=== PATIENT | female | born 1950 | race Caucasian/White ===

== ENCOUNTER 2016-08-31 10:18 | Inpatient (IN) | payer OTHER, MEDICARE ==
[~2016-08-31] VITALS: Ht 160 cm; Wt 57.5 kg
[2016-08-31] VITALS (8 sets, daily range): BP systolic 125–164; BP diastolic 77–94; PULSE 91–120; RESP 15–22; O2SAT 90–95
[~2016-08-31 10:18] MED LIST: ALBU8.5H4 IH; ASCO500C6 PO; ASPI-628 PO; CALC1TAB99 PO; CHOL100045 PO; CYAN1TAB42 PO; LISI10TA2 PO; LORA10TA7 PO; OMEG500C3 PO; SYN75 PO
--- NOTE | 2016-08-31 10:49 | ED.REPORT ---
HPI-Dyspnea / Wheezing Date of Service Aug 31, 2016 ED Provider: Will Palumbo MD History of Present Illness: Sent from Urgent Care for o2 say 80%, HR 135 66 year old female with a history of HTN on levothyroxine and lisinopril and seasonal allergies (uses an inhaler PRN) who presents to the ED via EMS from urgent care due shortness of breath and productive cough that has been present for the last 2 weeks, that has worsened in the last 4 days. She went to urgent care today due to severity of symptoms, and was found to be hypoxic and tachycardic. Two months ago the patient was able to walk any distance without shortness of breath. She now is short of breath at rest and has difficulty walking to the bathroom. Additionally, the patient reports insomnia, lethargy, balance difficulty, fever, diaphoresis, chills and palpitations with walking. Pt had 2 days of nausea, vomiting and diarrhea 4 days ago, which has since resolved. Pt has received her influenza immunization. Pt denies hemoptysis, has no known sick contacts, and has no hx of pneumonia or COPD. Nursing Notes Stated Complaint: NAUSEA/SOB/HIGH HR Chief Complaint: Respiratory Distress Nursing Notes Reviewed: Yes (MolecularMD, Right Media not reconciled) Allergies: Coded Allergies: Sulfa (Sulfonamide Antibiotics) (Verified Allergy, Intermediate, Rash, DEHYDRATION, 08/31/16) atenolol (Verified Allergy, Mild, 08/31/16) FATIGUE tetracycline (Verified Allergy, Unknown, INCREASED INFECTION, 08/31/16) Scheduled Ascorbic Acid (Vitamin C) 500 Mg Capsule.er 500 MG PO DAILY Aspirin (Aspirin) 81 Mg Tablet 81 MG PO DAILY Calcium Carbonate/Vitamin D3 (Calcium 600 + Vit D Tablet) 1 Each Tablet 1 EACH PO DAILY Cholecalciferol (Vitamin D3) (Vitamin D) 1,000 Unit Capsule 1,000 UNIT PO DAILY Levothyroxine (Synthroid) 75 Mcg Tablet 75 MCG PO DAILY Lisinopril (Lisinopril) 5 Mg Tablet 5 MG PO DAILY Multivits-Min/FA/Lycopene/Lut (Centrum Silver Tablet) 1 Each Tablet 1 EACH PO DAILY [place]-3 Fatty Acids (Fish Oil) 500 Mg Capsule 500 MG PO DAILY Vit B Comp/C/FA/Iron/Vit E (Vitamin B Complex Tablet) 1 Each Tablet 1 EACH PO DAILY Scheduled PRN Loratadine (Claritin) 10 Mg Capsule 10 MG PO DAILY PRN PRN allergies General Time Seen by MD: 10:47 Chief Complaint Shortness of breath Hx Obtained From: Patient, Spouse, EMS Arrived By: Ambulance Sudden in Onset?: No Onset Occurred: 4 days ago Symptom Duration: More than a week... (2 weeks) Quality: Aching (diffuse) Severity: Current: Moderate Associated with: Reports: Fever, Nausea Pertinent Negative: Relieved by nothing Recent Healthcare: Recent doctor visit Past Medical History Past Medical History Hypertension GERD Depression Allergies- uses an inhaler PRN Pt denies any history of pneumonia and COPD. Past Surgical History Partial thyroidectomy Reports: Hysterectomy Smoking History Never Smoker Social History Alcohol Use: 1-3 per day Ambulatory Status Independent Review of Systems Basic Review of Systems Eyes: Vision NL, No discharge Neurologic: NL mental status Psychiatric: Normal thought content Constitutional: Reports: Chills, Fever, Lethargy, Weakness - generalized Respiratory: Reports: Dyspnea on exertion, Prod cough, clear, Shortness of breath, Denies: Hemoptysis Cardiovascular: Reports: Dyspnea on exertion, Palpitations Skin: Reports Diaphoresis, Denies Rash Complete sys rev & neg: except as marked. GI: Reports: Diarrhea, Nausea, Vomiting Physical Exam Initial Vital Signs Vital Signs (First) Date Time Temp Pulse Resp B/P Pulse Ox O2 Delivery O2 Flow Rate FiO2 08/31/16 10:27 37.2 120 20 125/77 90 08/31/16 11:23 Nasal Cannula 4 Initial VS: Reviewed, Vital signs abnormal (hypoxic, tachycardic) Head / Eyes: Atraumatic, Normocephalic, PERRL ENT: Mucous membranes moist, Conjunctiva normal, No scleral icterus Abdomen / GI: Soft, Non-tender, No guarding, No rebound, No distention Extremities: Vascular intact, Neuro intact, No swelling (No edema), No tenderness Skin: Warm, Dry, No cyanosis Neurologic: Alert, Oriented, Nonfocal Psychiatric: Mood/affect normal, Behavior normal, Normal thought content General/Constitutional: Awake, Alert appears fatiged and dehydrated Neck: Atraumatic, Supple, Full range of motion Respiratory / Chest: No rales, No rhonchi, No wheezing rhonchi in all pathak Cough Does not appear severely dyspneic Cardiovascular: Regular rhythm, No murmurs, Peripheral circulation NL Heart Rate / Rhythm: Positive: Tachycardia Interpretation & Diagnostics Lab Results Interpretation Result Diagram: 08/31/16 1040 08/31/16 1040 Test 08/31/16 10:40 08/31/16 11:35 White Blood Count 16.6th/mm3 (3.8-10.1) Red Blood Count 4.51mil/mm3 (3.90-5.20) Hemoglobin 13.5g/dL (12.0-15.6) Hematocrit 39.4% (35.0-46.0) Mean Corpuscular Volume 87.4fL (81-100) Mean Corpuscular Hemoglobin 29.9pg (27.0-35.0) Mean Corpuscular Hemoglobin Concent 34.3% (32.0-37.0) Red Cell Distribution Width 12.5% (12.3-15.4) Platelet Count 456bil/L (150-400) Neutrophils (%) (Auto) 76% (40-74) Lymphocytes (%) (Auto) 6% (14-46) Monocytes (%) (Auto) 13% (4-12) Eosinophils (%) (Auto) 0% (0-5) Basophils (%) (Auto) 0% (0-3) Band Neutrophils % 5% (1-5) Sodium Level 129mEq/L (134-144) Potassium Level 3.4mEq/L (3.5-5.2) Chloride Level 89mEq/L (97-108) Carbon Dioxide Level 24mmol/L (18-29) Blood Urea Nitrogen 19mg/dL (8-27) Creatinine 0.79mg/dL (0.57-1.00) Estimat Glomerular Filtration Rate 104mL/min (>59) Glucose Level 146mg/dL (60-99) Lactic Acid Level 1.8mmol/L (0.4-2.0) Calcium Level 9.1mg/dL (8.5-10.1) Magnesium Level 2.2mg/dL (1.6-2.6) Total Bilirubin 1.0mg/dL (0.0-1.2) Aspartate Amino Transf (AST/SGOT) 27U/L (0-50) Alanine Aminotransferase (ALT/SGPT) 41U/L (0-32) Alkaline Phosphatase 121U/L (25-165) Troponin T < 0.010ug/L (0.0-0.011) Total Protein 8.0g/dL (6.4-8.4) Albumin 3.4g/dL (3.4-5.0) Procalcitonin 6.52ng/mL (See Comment) Hold Oralndo Top Tube Received (Received) Urine Color Yellow (YELLOW) Urine Appearance Slightly cloudy Urine pH 6.0 (5.0-8.0) Urine Specific [place] 1.020 (1.003-1.035) Urine Protein 100mg/dL (NEG,TRACE) Urine Glucose (UA) Negativemg/dL (NEGATIVE) Urine Ketones 15mg/dL (NEGATIVE) Urine Occult Blood Moderate (NEGATIVE) Urine Nitrite Positive (NEGATIVE) Urine Bilirubin Negative (NEGATIVE) Urine Urobilinogen 4.0mg/dL (NORMAL) Urine Leukocyte Esterase Small (NEGATIVE) Urine RBC 0-2/hpf (0-2) Urine WBC 11-50/hpf (0-5) Urine Epithelial Cells Occasional/hpf (NONE-MOD) Urine Crystals None seen (NONE SEEN) Urine Bacteria Many/hpf (NONE-FEW) Urine Hyaline Casts None/lpf (NONE) Urine Granular Casts None seen (NONE SEEN) Urine Waxy Casts None seen (NONE SEEN) Urine Red Blood Cell Casts None seen (NONE SEEN) Urine White Blood Cell Casts None seen (NONE SEEN) Urine Mucus None seen (None Seen) Urine Trichomonas None seen (NONE SEEN) Urine Yeast None (NONE SEEN) Urinalysis Comment None Urine Culture Reflexed Indicated Lab Results Interpretation: CBC positive severe leukocytosis CMP mild hyponatremia, mild hypokalemia Lactic acid normal next line blood culture 2 pending UA + for markers of infection (clinically respiratory source is suspected) Influenza screen negative General Lab Results Interp 1: Labs reviewed ECG Interpretation ECG Interpretation: Sinus tachycardia with a rate of 116. Time: 10:35 Interpreted by: ED physician Normal ECG Interpretation: No acute ischemic changes X-Ray Chest Interpretation Chest Xray Interpretation: IMPRESSION: Bibasilar lung opacities suspicious for aspiration versus pneumonia. Dictated by: Lucia Betancourt MD, PhD on 08/31/2016 at 11:23 View: Portable Interpretation / Wet Read by: Interpret - Radiologist Re-Eval/Medical Decision Med Decision/Clinical Course This is a 66-year-old healthy female presents with fever cough shortness of breath this then worsened over the past 4-5 days. She went to urgent care today due to severity of symptoms, and was found to be hypoxic and tachycardic. She is sent over the ED, and is not currently febrile - he is tachycardic and hypoxic. She has rhonchi throughout all pathak and is very fatigued and moderately ill. She appears dehydrated and has had poor intake the past few days. She has no previous cardiopulmonary history except for mild environmental allergies for which he uses his seasonal inhaler rarely. Her workup is notable for bibasilar pneumonia. She meets sepsis criteria clinically, as well as with the elevated white count, heart rate, hypoxia and pneumonia. Influenza swab was negative. She was started on IV fluids, antibiotics with ceftriaxone and azithromycin for community acquired pneumonia. Admission is planned. Urinalysis also abnormal, the patient's being covered for genitourinary source with the ceftriaxone. Case has been discussed with the hospitalist on patient's being admitted for continued management. Source of Hx: Old records Re-Evaluation/Progress : Time of Eval: 11:36 Re-Evaluation/Progress Note: Pt and family updated of abnormal x-ray findings. Recommended admission. Pt understands and agrees with plan. All questions addressed. Consultation : Referral / Consult Name: Ron West MD Consulted With: Hospitalist Call Returned at: 12:43 Metalworking Specialist: Will see patient, Agrees with eval, Agrees with plan, Accepts admit Differential Diagnosis: Positive: Pneumonia, Negative: Acute coronary syndrome, Airway obstruction, COPD exacerbation, Carbon monoxide poisoning, Cardiogenic shock, Hypertensive emergency, Hyperventilation, Inhalation injury, Pulmonary embolism, Respiratory failure Counseled Regarding: Diagnosis, Lab results, Need for admission Discharge & Departure Impression: Primary Impression: Pneumonia Pneumonia type: due to unspecified organism Laterality: bilateral Lung location: lower lobe of lung Qualified Code: J18.9 - Pneumonia, unspecified organism Additional Impressions: Hypoxia Sepsis Sepsis type: sepsis due to unspecified organism Qualified Code: A41.9 - Sepsis, unspecified organism UTI (urinary tract infection) Urinary tract infection type: acute cystitis Hematuria presence: without hematuria Qualified Code: N30.00 - Acute cystitis without hematuria Disposition: ADMITTED TO HOSPITAL Discharge Condition All VS Reviewed: Yes Referrals: Charlotte Llamas MD (PCP) Dixie Vergara DO Crit Care Except Billable Proc Time Spent: 30-74 minutes Services Performed: Patient management by me, Time spent at bedside, Reviewing test results, Reviewing imaging, Discussing patient care, Documentation in record, Time with fam/surrogate Scribe Attestation Portions of this note were transcribed by Zulma Spann. I, (Dr. Palumbo) personally performed the history, physical exam and medical decision-making; I reviewed and confirmed the accuracy of the information in the transcribed note. Signed by: Zulma Spann. 08/31/2016, 1242 copies to: Dixie Vergara Matthew F MD Aug 31, 2016 10:49 Zulma Spann Aug 31, 2016 11:04
[2016-08-31 10:55] LABS: Mean Corpuscular Hemoglobin 29.9 pg (27.0-35.0); Mean Corpuscular Volume 87.4 fL (81-100); Platelet Count 456 bil/L (150-400)
[2016-08-31] MEDS ORDERED: 0.9% Sodium Chloride 1,000 ML IV ONE (11:05)
[2016-08-31 11:17] LABS: BASOPHILS % (AUTO) 0 % (0-3); EOSINOPHILS % (AUTO) 0 % (0-5); MONOCYTES % (AUTO) 13 % (4-12); NEUTROPHILS % (AUTO) 76 % (40-74)
[2016-08-31] MEDS ORDERED: cefTRIAXone Inj 2,000 MG in IV Premix 1 EACH IV ONE (11:20)
[2016-08-31] MEDS ORDERED: Azithromycin Inj 500 MG in Dextrose 5% w/Vial Mate 250 ML IV ONE (11:20)
[2016-08-31 11:24] LABS: Magnesium 2.2 mg/dL (1.6-2.6)
--- NOTE | 2016-08-31 11:25 | DRSVH ---
PROCEDURE: X-RAY CHEST ONE VIEW, PORTABLE ([id number]) INDICATIONS: dyspnea TECHNIQUE: One view of the chest was acquired. COMPARISON: None. FINDINGS: Surgical changes and devices: None. Lungs and pleura: No pleural effusions or pneumothorax. Patchy opacities in the lung bases bilateral ly suspicious for pneumonia versus aspiration. Mediastinum: Mediastinal contours appear normal. Heart size is normal. Bones and chest wall: No suspicious bony lesions. Overlying soft tissues appear unremarkable. IMPRESSION: Bibasilar lung opacities suspicious for aspiration versus pneumonia. Dictated by: Lucia Betancourt MD, PhD on 08/31/2016 at 11:23 Approved by: Lucia Betancourt MD, PhD on 08/31/2016 at 11:23
[2016-08-31 11:32] LABS: TROPONIN T < 0.010 ug/L (0.0-0.011)
[2016-08-31] MEDS ORDERED: VIT1TABL83 PO (11:34)
[2016-08-31] MEDS ORDERED: MULT-1073 PO (11:34)
[2016-08-31] MEDS ORDERED: LISI-571 PO (11:34)
[2016-08-31] MEDS ORDERED: ASPI-973 PO (11:36)
[2016-08-31] MEDS ORDERED: CALC-243 PO (11:36)
[2016-08-31] MEDS ORDERED: LORA10CA PO (11:36)
[2016-08-31 12:11] LABS: APPEARANCE,URINE SLIGHTLY CLOUDY (CLEAR,HAZY); COLOR,URINE YELLOW (YELLOW); OCCULT BLOOD,URINE MODERATE (NEGATIVE)
--- NOTE | 2016-08-31 12:19 | NUR ---
Admit/Med Rec Admit and med rec completed in ED. Up to date on flu vaccine. Allergies confirmed and sticker placed to wrist band.
[2016-08-31] MEDS ORDERED: MethylprednisoLONE Sodium Succinate 40 mg/mL Inj IVPUSH ONE (12:45)
[2016-08-31] MEDS ORDERED: Polyethylene Glycol (PEG) 17 Gm Powder PO PRN (13:00)
[2016-08-31] MEDS ORDERED: Albuterol-Ipratropium 3 mL Inhalation Solution NEB PRN (13:00)
[2016-08-31] MEDS ORDERED: Alum-Mag Hydrox-Simeth 30 mL Suspension PO PRN ×2 (13:00→13:20)
[2016-08-31] MEDS ORDERED: Albuterol 2.5 mg/3 mL Inhalation Solution NEB PRN (13:00)
[2016-08-31] MEDS ORDERED: 0.9% Sodium Chloride 1,000 ML IV SCH (13:16)
[2016-08-31] MEDS ORDERED: Ondansetron 2 mg/mL 2 mL Inj IVPUSH PRN (13:20)
[2016-08-31] MEDS: 0.9% Sodium Chloride 1,000 ML IV SCH ×2 (16:30→18:06)
--- NOTE | 2016-08-31 19:20 | PCM.HPMED ---
Subjective Date of Service Aug 31, 2016 Primary Provider: Admitting Physician: Ron West MD Primary Care Physician: Charlotte Llamas MD Attending Physician: Ron West MD Chief Complaint: Shortness of breath History of Present Illness: This is a 66 year old woman with past medical history significant for hypertension, iatrogenic hypothyroidism, and seasonal allergies with inhaler use PRN who presented to the ED via EMS from urgent care due to shortness of breath and productive cough for the last 3 weeks. The patient notes that this has been worse over the last 4 days with increasing fatigue, loss of appetite and pleuritic chest pain. The patient was seen by her PCP on and was told that she had no lung pathology and was sent home. The patient then followed up in urgent care today and was noted to be hypoxemic with O2 sat of 80 % on room air wit heart rate of 135. The patient has been in otherwise good health until this episode. She denies any exertional dyspnea or orthopnea. The patient is now short of breath after a few steps. She notes a productive cough with clear to white sputum. She also notes fevers, diaphoresis, chills and feeling of her heart racing. The patient denies any myalgias or arthralgias. She notes that 2 weeks ago she was visit her grandson who was recovering from a viral illness. The patient has been on a cross country flight two weeks ago. She denies any hemoptysis or unilateral leg swelling. Patient has had her influenza vaccine. She has had poor PO intake over the last few days due to fatigue. She denies any cardiac history. In the ED her vitals were: T 37.2 HR 120 RR 20 BP 125/72 O2 Sat 90% on 2 L NC. CXR showed bibasilar pneumonia. Influenza swab was negative. She was given 1 L NS, ceftriaxone and azithromycin as well as one dose of prednisone 60 mg. Review of Systems: A comprehensive review of systems was performed and was negative except as noted above in the history of present illness. Allergies Coded Allergies: Sulfa (Sulfonamide Antibiotics) (Verified Allergy, Intermediate, Rash, DEHYDRATION, 08/31/16) atenolol (Verified Allergy, Mild, 08/31/16) FATIGUE tetracycline (Verified Allergy, Unknown, INCREASED INFECTION, 08/31/16) Home Medications Scheduled Ascorbic Acid (Vitamin C) 500 Mg Capsule.er 500 MG PO DAILY Aspirin (Aspirin) 81 Mg Tablet 81 MG PO DAILY Calcium Carbonate/Vitamin D3 (Calcium 600 + Vit D Tablet) 1 Each Tablet 1 EACH PO DAILY Cholecalciferol (Vitamin D3) (Vitamin D) 1,000 Unit Capsule 1,000 UNIT PO DAILY Levothyroxine (Synthroid) 75 Mcg Tablet 75 MCG PO DAILY Lisinopril (Lisinopril) 5 Mg Tablet 5 MG PO DAILY Multivits-Min/FA/Lycopene/Lut (Centrum Silver Tablet) 1 Each Tablet 1 EACH PO DAILY [place]-3 Fatty Acids (Fish Oil) 500 Mg Capsule 500 MG PO DAILY Vit B Comp/C/FA/Iron/Vit E (Vitamin B Complex Tablet) 1 Each Tablet 1 EACH PO DAILY Scheduled PRN Loratadine (Claritin) 10 Mg Capsule 10 MG PO DAILY PRN PRN allergies PMH Hypertension GERD Depression Allergies- uses an inhaler PRN Pt denies any history of pneumonia and COPD. Surgical History Partial thyroidectomy Hysterectomy Family History Positive for family history of hypertension in multiple family members. Social History Hx Alcohol Use: Yes (glass of wine nightly) Hx Substance Use: No Hx Tobacco Use: No Smoking Status: Never Smoker Additional Information Lives alone Exam Vital Signs Vital Sign - Last Date Time Temp Pulse Resp B/P Pulse Ox O2 Delivery O2 Flow Rate FiO2 08/31/16 16:29 115 92 Nasal Cannula 4.00 08/31/16 15:14 37.6 20 164/94 Exam General: in mild acute distress, well-developed, well-nourished, lethargic HEENT: Normocephalic, atraumatic. External ears without defect. Pupils equal, round, and reactive to light and accommodation. Anicteric sclerae, moist conjunctivae, and no lid lag. Oropharynx free of erythema and cobble stoning with dry mucosa. Neck: Supple with full range of motion. No jugular venous distension. No bruits. No lymphadenopathy or thyromegaly. Cardiovascular: Regular rate and tachycardic with no murmurs, rubs, or gallops appreciated Pulmonary: Rhonchi at bilateral bases. Normal respiratory effort with no use of accessory muscles. Abdomen: Bowel tones present. Soft, nontender, nondistended. No hepatosplenomegaly or masses appreciated. Extremities: No clubbing, cyanosis, edema, or lymphadenopathy appreciated. Skin: Normal temperature, turgor, and texture; no rash, ulcers, or subcutaneous nodules appreciated. Neurological: Cranial nerves grossly intact. Normal muscle strength, tone, and bulk. Reflexes, coordination, and sensory function within normal limits. No known gait impairment. Psychiatric: Normal mood and affect. Alert and oriented to person, place, and time. Lab and Diagnostics Result Diagram: 08/31/16 1040 08/31/16 1040 Microbiology Strep pneumo Ag negative X-Rays, CTs and MRIs PROCEDURE: X-RAY CHEST ONE VIEW, PORTABLE ([id number]) IMPRESSION: Bibasilar lung opacities suspicious for aspiration versus pneumonia. Dictated by: Lucia Betancourt MD, PhD on 08/31/2016 at 11:23 Assessment & Plan This is a 66 year old woman with past medical history significant for hypertension, iatrogenic hypothyroidism, and seasonal allergies with inhaler use PRN who presented to the ED via EMS from urgent care due to shortness of breath and productive cough for the last 3 weeks. 1. Severe sepsis, present on admission -HR 120 RR 22 WBC 16.6 with O2 sat 80% on RA, source: CAP and UTI, with lethargy -Patient given 1 L of NS, will give 2 more L NS bolus, may require more, will sign out to night team to reassess for further fluid management -Antibiotics as below -Blood cultures pending 2. Community Acquired Pneumonia, present on admission -Started on Ceftriaxone and Azithromycin by ED, will continue -Legionella Ag pending -Sputum culture ordered -Blood culture pending -Respiratory viral PCR pending -MRSA screen pending, but unlike to be the cause of the PNA given patient's overall good health -Prednisone 40 mg x5 days, recall [place] meta-analysis showing reduced hospital stay, reduce mortality and reduced rate of complications with medium dose steroids in severe CAP 3. Urinary tract infection, present on admission -UA showing leukocyte esterase and 11-50 WBCs with symptoms of difficulty urinating -Antibiotics as above 4. Hypovolemic hyponatremia, present on admission -Secondary to poor PO intake and diarrhea/vomiting -Ongoing NS resuscitation as above -Recheck BPM in AM 5. Hypokalemia, present on admission -Replaced 40 mEq PO KCl -Recheck in AM 6. Hypertension, present on admission -Restart lisinopril 7. Hypothyroidism 2/2 partial thyroidectomy, present on admission -Continue home levothyroxine CODE STATUS: FULL CODE Patient is admitted under inpatient status with anticipated length of stay >2 midnights due to severity of the patient's symptoms as well possibility for complications. Attending Statement The patient was seen and examined together with Dr. Nagy on 08/31/2016 and I agree with the history, exam and plan as outlined in the note above. . Raquel Nagy DO Aug 31, 2016 19:17 Ron West MD Sep 02, 2016 07:42
[2016-08-31] MEDS: cefTRIAXone Inj 1,000 MG in IV Premix 1 EACH IV SCH (19:56)
[2016-08-31] MEDS: guaiFENesin DM 200-20 mg/10 mL Syrup PO PRN (23:11)
[2016-09-01] VITALS (7 sets, daily range): BP systolic 123–139; BP diastolic 76–83; PULSE 76–98; RESP 19–20; O2SAT 93–95
[2016-09-01] MEDS ORDERED: Potassium Chloride 20 mEq SR Tablet PO ONE (01:15)
--- NOTE | 2016-09-01 04:55 | NUR ---
Respiratory: Pt has been on 4L NC through the night with sats mid 90s. Reports having shortness of breath with activity. Sputum still needed, non-productive dry cough. Pt has been calling for help to the bathroom, was slightly unsteady the first time RN got her up as she got up in one movement. Reminded pt to sit first, before standing. Has done better the remainder of the shift. Received Robitussin for cough and potassium supplement for a K+ of 3.4.
[2016-09-01 06:30] LABS: EOSINOPHILS % (AUTO) 0 % (0-5); Mean Corpuscular Hemoglobin 30.8 pg (27.0-35.0); Mean Corpuscular Volume 88.1 fL (81-100); Platelet Count 425 bil/L (150-400)
[2016-09-01 08:22] LABS: BASOPHILS % (AUTO) 0 % (0-3); MONOCYTES % (AUTO) 6 % (4-12); NEUTROPHILS % (AUTO) 84 % (40-74)
[2016-09-01] MEDS: cefTRIAXone Inj 1,000 MG in IV Premix 1 EACH IV SCH ×2 (08:27→22:07)
[2016-09-01] MEDS: Ascorbic Acid 500 mg Tablet PO SCH (08:27)
[2016-09-01] MEDS: Potassium Chloride 20 mEq SR Tablet PO SCH (08:27)
[2016-09-01] MEDS ORDERED: Azithromycin Inj 500 MG in Dextrose 5% w/Vial Mate 250 ML IV SCH (08:30)
[2016-09-01] MEDS ORDERED: predniSONE 20 mg Tablet PO SCH (08:30)
[2016-09-01] MEDS ORDERED: [UNRECOGNIZED DRUG - OTHER] PO SCH (08:30)
[2016-09-01] MEDS ORDERED: VITAMIN D3 PO SCH (08:30)
[2016-09-01] MEDS ORDERED: CALCIUM CARBONATE PO SCH (08:30)
[2016-09-01] MEDS: 0.9% Sodium Chloride 1,000 ML IV SCH (09:19)
[2016-09-01] MEDS: guaiFENesin DM 200-20 mg/10 mL Syrup PO PRN (12:44)
--- NOTE | 2016-09-01 14:02 | NUR ---
Social Work-initial assessment: Data:See initial assessment. Pt is a 66 y/o female who was admitted on 08/31/16 for pneumonia per H&P. Pt's insurance is and PCP is Dr. Ursula MD. EMR reviewed. SW met with pt at bedside to discuss discharge planning, SW role explained. Pt is alert and oriented x3. Pt resides at home alone where she remains independent with ADLS. Pt has a single level home with ramp to enter. Pt does not use any DME and drives. Pt has no HH or SNF history. Pt has no [facility] care insurance or [facility] benefits. SW discussed DPOA/ advanced directive, pt states she has completed this, SW encouraged pt to bring a copy into the hospital. Pt states that her daughter Ginny is flying into town this evening and will be staying with her post hospitalization. Pt's daughter to provide transport home at discharge. Per RN notes, pt has been up independent in her room. No anticipated discharge needs. SW provided phone number and plan on white board in room. SW will continue to follow if needs arise. Assessment:pt who is independent at baseline. Plan:Pt to discharge home when medically stable via POV. No anticipated discharge needs. SW will continue to follow if needs arise. ANIKET Shukla Addendum: 09/01/16 at 1407 by JAN HAWKINS Amended: Links added.
--- NOTE | 2016-09-01 16:09 | PCM.PNMED ---
Subjective Date of Service Sep 01, 2016 Subjective pt feeling much better, c/o mild suprapubic pain, no burning when urinates mild cough, sob Exam Vital Signs Vital Sign - Last Date Time Temp Pulse Resp B/P Pulse Ox O2 Delivery O2 Flow Rate FiO2 09/01/16 12:00 36.6 84 20 135/83 94 Nasal Cannula 4.00 Intake and Output 08/31/16 08/31/16 09/01/16 Cumulative From/Thru 15:00 23:00 07:00 08/31/16 10:27 - 09/01/16 05:27 Intake Total 1000 ml 1372 ml 1031 ml 3403 ml Output Total 400 ml 1400 ml 1800 ml Balance 1000 ml 972 ml -369 ml 1603 ml Intake Oral 350 ml 0 ml 350 ml IV Total 1000 ml 1022 ml 1031 ml 3053 ml Output Urine Total 400 ml 1400 ml 1800 ml # Bowel Movements 0 1 1 Exam NAD, comfortably laying down on the bed no JVD, MMM, no LAD RRR, nl s1, s2 no mrg bibasilar crackles S,ND,NT,normoactive BS+ warm, no edema, pulses 2/2 IVs and Medications Medications Reviewed: Medications were reviewed in detail Lab and Diagnostics Result Diagram: 09/01/16 0550 09/01/16 0550 Microbiology Strep pneumo Ag negative X-Rays, CTs and MRIs PROCEDURE: X-RAY CHEST ONE VIEW, PORTABLE ([id number]) IMPRESSION: Bibasilar lung opacities suspicious for aspiration versus pneumonia. Dictated by: Lucia Betancourt MD, PhD on 08/31/2016 at 11:23 Assessment & Plan This is a 66 year old woman with past medical history significant for hypertension, iatrogenic hypothyroidism, and seasonal allergies with inhaler use PRN who presented to the ED via EMS from urgent care due to shortness of breath and productive cough for the last 3 weeks. acute, active #Severe sepsis, present on admission, SIRS+HR 120 RR 22 WBC 16.6 with O2 sat 80 % on RA, source: pneumonia with babsilar opacities on CXR, UTI UCX+GNR, strep Ag /viral PCR neg, -pt remained HD stable, afebrile, clinically improving with abx, continue Ceftriaxone and Azithromycin, switch to oral based on sensitivity -pending infectious w/u, follow up MRSA sawb, urine culture, BCX -stopped prednisone today -O2 supplement as needed, target>95%, should be weaned off with clinically improvement chronic, stable #Hypertension, present on admission, continue lisinopril #Hypothyroidism 2/2 partial thyroidectomy, present on admission, continue home levothyroxine dvt ppx: start LMWH diet: general dispo: PT today, pt likely d/c home tomorrow, FU with PT recs, Full code Time spent 35min Willie Colunga MD Sep 01, 2016 14:19
[2016-09-02] VITALS (8 sets, daily range): BP systolic 106–146; BP diastolic 71–82; PULSE 82–110; RESP 18–20; O2SAT 92–97
--- NOTE | 2016-09-02 04:43 | NUR ---
Respiratory Pt on 3.5L NC throughout shift; SpO2 90-94%; unable to wean O2 d/t oxygenation demands. Pt reports feeling dyspneic on exertion, able to ambulate to BR with SBA. Pt reports headache this AM and intermittent pain with coughing; 975mg Tylenol administered this AM with relief on reassessment. VSS. Tele SR 80s-90s.
[2016-09-02 06:40] LABS: Mean Corpuscular Hemoglobin 30.5 pg (27.0-35.0); Mean Corpuscular Volume 88.6 fL (81-100); Platelet Count 482 bil/L (150-400)
[2016-09-02 06:59] LABS: Phosphorus 2.3 mg/dL (2.5-4.9)
[2016-09-02 08:24] LABS: BASOPHILS % (AUTO) 0 % (0-3); EOSINOPHILS % (AUTO) 0 % (0-5); MONOCYTES % (AUTO) 9 % (4-12); NEUTROPHILS % (AUTO) 77 % (40-74)
[2016-09-02] MEDS: cefTRIAXone Inj 1,000 MG in IV Premix 1 EACH IV SCH ×2 (08:58→20:00)
[2016-09-02] MEDS: Ascorbic Acid 500 mg Tablet PO SCH (09:00)
--- NOTE | 2016-09-02 09:43 | DRSVH ---
PROCEDURE: X-RAY CHEST, TWO VIEWS ([id number]) INDICATIONS: Follow up for pneumonia TECHNIQUE: 2 views of the chest were acquired. COMPARISON: [facility], CR, XR CHEST 1VW (PORTABLE), 08/31/2016, 10:45. [facility], CR, CHEST 2VW, 11/14/2013, 11:05. FINDINGS: Surgical changes and devices: None. Lungs and pleura: No pleural effusions or pneumothorax. Patchy air space opacities noted in the post erior aspect lung bases bilaterally suspicious for pneumonia. Mediastinum: Mediastinal contours are normal. Heart size is normal. Bones and chest wall: No suspicious bony abnormalities. Soft tissues appear unremarkable. IMPRESSION: Bibasilar pneumonia not significantly changed compared to prior study obtained 08/31/16. Re commend followup imaging to resolution of the bibasilar opacities to exclude ng neoplastic process. Dictated by: Lucia Betancourt MD, PhD on 09/02/2016 at 9:41 Approved by: Lucia Betancourt MD, PhD on 09/02/2016 at 9:41
--- NOTE | 2016-09-02 10:38 | NUR ---
LISBETH: Checked chart and patient have [facility] HMO as primary and MCR secondary.
[2016-09-02] MEDS: Potassium Chloride 20 mEq SR Tablet PO SCH (12:50)
[2016-09-02] MEDS: Azithromycin Inj 500 MG in Dextrose 5% w/Vial Mate 250 ML IV SCH (12:51)
--- NOTE | 2016-09-02 17:56 | NUR ---
Case Management: Explained IMM to patient and family at 1606, all questions answered. Signed copy placed in chart, patient given a copy. Kayce Wooten RN
--- NOTE | 2016-09-02 18:38 | NUR ---
Respiratory/Malaise Pt reports feeling worse today overall than yesterday. Continues to need 3L O2 and is notably dyspneic with activity. Pt looks more fatigued, eyelids heavier, and softer voice after lunch compared to affect this am. Pt reports feeling as though her ears are clogged and that it is difficult to hear, she also reports her eyes feeling like they are burning when she is febrile (as well as SOLITARIO). PRN APAP given for discomfort and fever. Pt reports that she informed MD of clogged ears and burning eyes. Pts dtr voiced concern RE: pt's overall condition
--- NOTE | 2016-09-02 22:29 | PCM.PNMED ---
Subjective Date of Service Sep 02, 2016 Subjective Patient states she does not feel well today and in fact states she feels a little bit worse than yesterday. She is very vague about her symptoms. Exam Vital Signs Vital Sign - Last Date Time Temp Pulse Resp B/P Pulse Ox O2 Delivery O2 Flow Rate FiO2 09/02/16 20:08 Supplement Oxygen 09/02/16 19:57 37.1 108 94 4.00 09/02/16 17:34 20 121/76 Intake and Output 09/01/16 09/01/16 09/02/16 Cumulative From/Thru 15:00 23:00 07:00 08/31/16 10:27 - 09/02/16 05:58 Intake Total 330 ml 818 ml 200 ml 4751 ml Output Total 700 ml 600 ml 3100 ml Balance 330 ml 118 ml -400 ml 1651 ml Intake Oral 768 ml 200 ml 1318 ml IV Total 310 ml 50 ml 3413 ml Tube Irrigant 20 ml 20 ml Output Urine Total 700 ml 600 ml 3100 ml # Bowel Movements 1 0 2 Exam General: Patient is lying supine in bed in no apparent distress. She looks as if she does not feel well. HEENT: Head is atraumatic normocephalic. Eyes: Pupils are equally round and reactive to light and accommodation. Extraocular muscles are intact. Sclera are white anicteric. Subconjunctival mucosa is pink. Ears and nose are unremarkable. Oropharynx: There is no mucosal lesions, there is no thrush, there is no pharyngitis. Neck: Is supple, there are no nodes, or masses or tenderness. Chest: There is bibasilar rales right slightly greater than left. There is minimal wheezing. There is no rhonchi or rubs. Heart: Rate, rhythm is regular. There is no murmur, rub or gallop. Abdomen: Good bowel sounds are present. Abdomen is soft, nontender, no organomegaly or masses were appreciated. Extremities: Are symmetrical and well perfused. There is no edema, there is no cellulitis, no rash. Neurologic: There are no focal neurological deficits. Cranial nerves II through XII are intact. There are no sensory or motor deficits. Psychiatric: Patients mood is calm and shows no sign of agitation. Genital: Deferred Rectal: Deferred Lab and Diagnostics Result Diagram: 09/02/16 0550 09/02/16 0550 Microbiology Strep pneumo Ag negative Name: DERIK PORTILLO Age/Sex: 66/F Attend Dr: Ron West MD Acct: [id number] Unit: [id number] Status: ADM IN Location: [facility] 3012-1 Re08/31/16 Disch: Specimen: [id number] Collected: 08/31/16 Status: COMP Req#: [id number] Received: 08/31/16 Source: URINE CC Sp Desc : ANGELITA Avalos Dr: Will Palumbo MD Ordered: URINE CULT Procedure Result Verified Site Microbiology REINIER CULT URINE Final 09/02/16-0803 Organism 1 ESCHERICHIA COLI U COLONY COUNT/QUANTITY >100,000 CFU/ml Cefazolin-predicts results for the oral agents, cefaclor,cefdinir, cefpodoximen, cefprozil, cefuroximne axetil, cephalexin and loracarbed when used for therapy of uncomplicated UTI's due to E. coli, K. pneumoniae, and Proteus mirabilis. Cefpodoxime, cefdinir and cefuroxime axetil may be tested individually because some isolates may be susceptible to these agents while testing resistant to cefazolin. (CLSI C604-R26 pg 53) 1. ESCHERICHIA COLI M.I.C Interp --------- ------ * AMOXICILLIN/CLAVULATE 16 I * AMPICILLIN >=32 R * CEFAZOLIN (CEPHALOSPORIN) UTI 16 S * CEFEPIME <=1 S * CEFTRIAXONE <=1 S * CEFUROXIME SODIUM 16 I * CIPROFLOXACIN <=0.25 S * ERTAPENEM <=0.5 S * GENTAMICIN <=1 S * IMIPENEM <=1 S * LEVOFLOXACIN <=0.12 S * NITROFURANTOIN <=16 S * TETRACYCLINE <=1 S * TOBRAMYCIN <=1 S * TRIMETHOPRIM/SULFAMETHOXAZOLE <=20 S X-Rays, CTs and MRIs PROCEDURE: X-RAY CHEST ONE VIEW, PORTABLE ([id number]) IMPRESSION: Bibasilar lung opacities suspicious for aspiration versus pneumonia. Dictated by: Lucia Betancourt MD, PhD on 08/31/2016 at 11:23 PROCEDURE: X-RAY CHEST, TWO VIEWS ([id number]) INDICATIONS: Follow up for pneumonia TECHNIQUE: 2 views of the chest were acquired. COMPARISON: [facility], CR, XR CHEST 1VW (PORTABLE), 08/31/2016, 10: 45. [facility], CR, CHEST 2VW, 11/14/2013, 11:05. FINDINGS: Surgical changes and devices: None. Lungs and pleura: No pleural effusions or pneumothorax. Patchy air space opacities noted in the posterior aspect lung bases bilaterally suspicious for pneumonia. Mediastinum: Mediastinal contours are normal. Heart size is normal. Bones and chest wall: No suspicious bony abnormalities. Soft tissues appear unremarkable. IMPRESSION: Bibasilar pneumonia not significantly changed compared to prior study obtained 08/31/16. Recommend followup imaging to resolution of the bibasilar opacities to exclude ng neoplastic process. Dictated by: Lucia Betancourt MD, PhD on 09/02/2016 at 9:41 Approved by: Lucia Betancourt MD, PhD on 09/02/2016 at 9:41 Assessment & Plan This is a 66 year old woman with past medical history significant for hypertension, iatrogenic hypothyroidism, and seasonal allergies with inhaler use PRN who presented to the ED via EMS from urgent care due to shortness of breath and productive cough for the last 3 weeks. acute, active # Severe sepsis, present on admission, SIRS+HR 120 RR 22 WBC 16.6 with O2 sat 80 % on RA, source: pneumonia and Escherichia coli urinary tract infection with babsilar opacities on CXR, UTI UCX+GNR, strep Ag/viral PCR neg, -Patient initially appeared clinically improving with abx, continue Ceftriaxone and Azithromycin. However, today she appears somewhat worse and her white blood cell count is higher today -pending infectious w/u, follow up MRSA sawb, urine culture, BCX -The prednisone was stopped yesterday -O2 supplement as needed, target>95%, should be weaned off with clinically improvement -Repeat chest x-ray shows bibasilar infiltrates unchanged since admission. # Urinary tract infection with Escherichia coli present at the time of admission -Continue Rocephin -Continue IV fluids chronic, stable # Hypertension, present on admission, continue lisinopril # Hypothyroidism 2/2 partial thyroidectomy, present on admission, continue home levothyroxine Continue general diet Disposition: As patient is slightly worse today was no plans to send her home until she begins to feel better and her white blood cell count improves. Pain Evaluation: Adequate Pain Control GI Prophylaxis: Proton Pump Inhibitor VTE Prophylaxis: Sub-Q Enoxaparin Resuscitation Status: CPR: Attempt Resuscitation Satya Marques MD Sep 02, 2016 22:29
[2016-09-02] MEDS: 0.9% NaCl + KCl 20 mEq/L 1,000 ML IV SCH (22:56)
[2016-09-03] VITALS (8 sets, daily range): BP systolic 113–135; BP diastolic 68–82; PULSE 80–111; RESP 19–22; O2SAT 93–95
--- NOTE | 2016-09-03 00:09 | NUR ---
Hearing "congestion" Pt states she has some difficulty hearing, Pt denies any ringing in the ear or dizziness, states it feels more like "congestion" Pt currently on IV abx. Pharmacy made aware of pt symptoms- states its a very rare reaction and my just be from infection. No further abx scheduled tonight, will pass on to day team.
[2016-09-03 07:08] LABS: Mean Corpuscular Volume 88.7 fL (81-100); Platelet Count 499 bil/L (150-400)
[2016-09-03 07:27] LABS: Magnesium 1.8 mg/dL (1.6-2.6)
[2016-09-03 07:48] LABS: BASOPHILS % (AUTO) 0 % (0-3); EOSINOPHILS % (AUTO) 0 % (0-5); MONOCYTES % (AUTO) 7 % (4-12); NEUTROPHILS % (AUTO) 64 % (40-74)
[2016-09-03 07:50] LABS: ERYTHROCYTE SEDIMENTATION RATE > 140 mm/hr (0-40)
[2016-09-03] MEDS: Pantoprazole 40 mg ER24 Tablet PO SCH (08:31)
[2016-09-03] MEDS: Potassium Chloride 20 mEq SR Tablet PO SCH (08:33)
[2016-09-03] MEDS: Ascorbic Acid 500 mg Tablet PO SCH (08:34)
[2016-09-03] MEDS: cefTRIAXone Inj 1,000 MG in IV Premix 1 EACH IV SCH ×2 (08:34→20:15)
[2016-09-03] MEDS: 0.9% NaCl + KCl 20 mEq/L 1,000 ML IV SCH (11:55)
[2016-09-03] MEDS: Azithromycin Inj 500 MG in Dextrose 5% w/Vial Mate 250 ML IV SCH (11:55)
--- NOTE | 2016-09-03 21:43 | PCM.PNMED ---
Subjective Date of Service Sep 03, 2016 Subjective Patient states she is beginning to feel better today. She is less short of breath. And overall feels slightly better. Exam Vital Signs Vital Sign - Last Date Time Temp Pulse Resp B/P Pulse Ox O2 Delivery O2 Flow Rate FiO2 09/03/16 16:35 37.0 111 22 122/68 94 Nasal Cannula 4.00 Intake and Output 09/02/16 09/02/16 09/03/16 Cumulative From/Thru 15:00 23:00 07:00 08/31/16 10:27 - 09/03/16 05:55 Intake Total 1584 ml 611 ml 6946 ml Output Total 1175 ml 4275 ml Balance 409 ml 611 ml 2671 ml Intake Oral 1200 ml 2518 ml IV Total 384 ml 611 ml 4408 ml Tube Irrigant 20 ml Output Urine Total 1175 ml 4275 ml # Bowel Movements 1 3 Exam General: Patient is lying supine in bed in no apparent distress. She is somewhat somnolent. She does not appear as ill as she did yesterday.. HEENT: Head is atraumatic normocephalic. Eyes: Pupils are equally round and reactive to light and accommodation. Extraocular muscles are intact. Sclera are white anicteric. Subconjunctival mucosa is pink. Ears and nose are unremarkable. Oropharynx: There is no mucosal lesions, there is no thrush, there is no pharyngitis. Neck: Is supple, there are no nodes, or masses or tenderness. Chest: There bibasilar rales right slightly greater than left. These adventitious sounds have improved since yesterday. There is minimal wheezing. There are no rhonchi or rubs. Heart: Rate, rhythm is regular. There is no murmur, rub or gallop. Abdomen: Good bowel sounds are present. Abdomen is soft, nontender, no organomegaly or masses were appreciated. Extremities: Are symmetrical and well perfused. There is no edema, there is no cellulitis, no rash. Neurologic: There are no focal neurological deficits. Cranial nerves II through XII are intact. There are no sensory or motor deficits. Psychiatric: Patients mood is calm and shows no sign of agitation. Genital: Deferred Rectal: Deferred Lab and Diagnostics Result Diagram: 09/03/16 0640 09/03/16 0640 Microbiology Strep pneumo Ag negative Name: DERIK PORTILLO Age/Sex: 66/F Attend Dr: Ron West MD Acct: [id number] Unit: [id number] Status: ADM IN Location: [facility] 3012-1 Re08/31/16 Disch: Specimen: [id number] Collected: 08/31/16 Status: COMP Req#: [id number] Received: 08/31/16 Source: URINE CC Sp Desc : PP Robbie Dr: Will Palumbo MD Ordered: URINE CULT Procedure Result Verified Site Microbiology REINIER CULT URINE Final 09/02/16 Organism 1 ESCHERICHIA COLI U COLONY COUNT/QUANTITY >100,000 CFU/ml Cefazolin-predicts results for the oral agents, cefaclor,cefdinir, cefpodoximen, cefprozil, cefuroximne axetil, cephalexin and loracarbed when used for therapy of uncomplicated UTI's due to E. coli, K. pneumoniae, and Proteus mirabilis. Cefpodoxime, cefdinir and cefuroxime axetil may be tested individually because some isolates may be susceptible to these agents while testing resistant to cefazolin. (CLSI L887-B44 pg 53) 1. ESCHERICHIA COLI M.I.C Interp --------- ------ * AMOXICILLIN/CLAVULATE 16 I * AMPICILLIN >=32 R * CEFAZOLIN (CEPHALOSPORIN) UTI 16 S * CEFEPIME <=1 S * CEFTRIAXONE <=1 S * CEFUROXIME SODIUM 16 I * CIPROFLOXACIN <=0.25 S * ERTAPENEM <=0.5 S * GENTAMICIN <=1 S * IMIPENEM <=1 S * LEVOFLOXACIN <=0.12 S * NITROFURANTOIN <=16 S * TETRACYCLINE <=1 S * TOBRAMYCIN <=1 S * TRIMETHOPRIM/SULFAMETHOXAZOLE <=20 S X-Rays, CTs and MRIs PROCEDURE: X-RAY CHEST ONE VIEW, PORTABLE ([id number]) IMPRESSION: Bibasilar lung opacities suspicious for aspiration versus pneumonia. Dictated by: Lucia Betancourt MD, PhD on 08/31/2016 at 11:23 PROCEDURE: X-RAY CHEST, TWO VIEWS ([id number]) INDICATIONS: Follow up for pneumonia TECHNIQUE: 2 views of the chest were acquired. COMPARISON: [facility], CR, XR CHEST 1VW (PORTABLE), 08/31/2016, 10: 45. [facility], CR, CHEST 2VW, 11/14/2013, 11:05. FINDINGS: Surgical changes and devices: None. Lungs and pleura: No pleural effusions or pneumothorax. Patchy air space opacities noted in the posterior aspect lung bases bilaterally suspicious for pneumonia. Mediastinum: Mediastinal contours are normal. Heart size is normal. Bones and chest wall: No suspicious bony abnormalities. Soft tissues appear unremarkable. IMPRESSION: Bibasilar pneumonia not significantly changed compared to prior study obtained 08/31/16. Recommend followup imaging to resolution of the bibasilar opacities to exclude ng neoplastic process. Dictated by: Lucia Betancourt MD, PhD on 09/02/2016 at 9:41 Approved by: Lucia Betancourt MD, PhD on 09/02/2016 at 9:41 Assessment & Plan This is a 66 year old woman with past medical history significant for hypertension, iatrogenic hypothyroidism, and seasonal allergies with inhaler use PRN who presented to the ED via EMS from urgent care due to shortness of breath and productive cough for the last 3 weeks. acute, active # Severe sepsis, present on admission, SIRS+HR 120 RR 22 WBC 16.6 with O2 sat 80 % on RA, source: pneumonia and Escherichia coli urinary tract infection with babsilar opacities on CXR, UTI UCX+GNR, strep Ag/viral PCR neg, -Patient initially appears clinically improving with antibiotics, will continue Ceftriaxone and Azithromycin. -However, her white blood cell count is higher again today. I suspect this is due to the white blood cell count lagging behind the patient's clinical response and hopefully it has peaked. Also elevation of white blood cell count could be due to steroid use however she did not receive any steroids yesterday. -The prednisone was stopped 09/01/2016 -O2 supplement as needed, target>95%, should be weaned off with clinically improvement -Repeat chest x-ray shows bibasilar infiltrates unchanged since admission. # Urinary tract infection with Escherichia coli present at the time of admission -Continue Rocephin -Continue IV fluids chronic, stable # Hypertension, present on admission, continue lisinopril # Hypothyroidism 2/2 partial thyroidectomy, present on admission, continue home levothyroxine. Check TSH. Continue general diet Disposition: As patient's white blood cell count is slightly worse today, I suspect the earliest patient will be able to go home will be on 09/05/2016. Pain Evaluation: Adequate Pain Control GI Prophylaxis: Proton Pump Inhibitor VTE Prophylaxis: Sub-Q Enoxaparin VTE Mechanical Devices: Intermittant Pneumatic CD Resuscitation Status: CPR: Attempt Resuscitation Satya Marques MD Sep 03, 2016 21:42
[2016-09-04] VITALS (8 sets, daily range): BP systolic 105–131; BP diastolic 68–79; PULSE 91–110; RESP 20–24; O2SAT 92–97
[2016-09-04] MEDS: 0.9% NaCl + KCl 20 mEq/L 1,000 ML IV SCH ×2 (01:04→14:20)
--- NOTE | 2016-09-04 04:46 | NUR ---
Hearing/Resp Pt c/o "muffled" hearing r/t possible sinus congestion, denies pain. SpO2 mid 90's 4L NC. Pt family reports cough subsiding somewhat over past day. Pt daughter and son expressing desire to speak with MD in a.m. regarding plan of care.
[2016-09-04 06:48] LABS: Mean Corpuscular Hemoglobin 30.3 pg (27.0-35.0); Mean Corpuscular Volume 89.6 fL (81-100); Platelet Count 481 bil/L (150-400)
[2016-09-04] MEDS: cefTRIAXone Inj 1,000 MG in IV Premix 1 EACH IV SCH ×2 (07:57→21:04)
[2016-09-04] MEDS: Ascorbic Acid 500 mg Tablet PO SCH (07:57)
[2016-09-04] MEDS: Potassium Chloride 20 mEq SR Tablet PO SCH (07:57)
[2016-09-04] MEDS: Pantoprazole 40 mg ER24 Tablet PO SCH (07:57)
[2016-09-04 08:03] LABS: Magnesium 1.8 mg/dL (1.6-2.6); Phosphorus 3.3 mg/dL (2.5-4.9)
[2016-09-04 08:12] LABS: BASOPHILS % (AUTO) 1 % (0-3); EOSINOPHILS % (AUTO) 1 % (0-5); MONOCYTES % (AUTO) 6 % (4-12); NEUTROPHILS % (AUTO) 75 % (40-74)
[2016-09-04] MEDS: Azithromycin Inj 500 MG in Dextrose 5% w/Vial Mate 250 ML IV SCH (10:57)
--- NOTE | 2016-09-04 11:23 | NUR ---
questions for Doc. the family has some questions for the pt's doctor "specifically". pt's son wrote several questions on a paper, this RN will put those questions in the pt's chart. This RN will also page doc letting them know that the questions are in the paper chart.
--- NOTE | 2016-09-04 15:59 | NUR ---
Social Work: Brief Note Data: Pt is on day 4 of hospitalization. EMR reviewed, pt discussed in rounds. MD states pt likely to d/c in a few days and is not medically ready for d/c at this time. No d/c planning needs anticipated. ACTIVITIES VOLUNTEER will continue to follow if needs arise. Plan: Pt will d/c home via POV when medically stable, No d/c planning needs anticipated. ACTIVITIES VOLUNTEER will continue to follow if needs arise. ANIKET Puri
--- NOTE | 2016-09-04 17:22 | CONS ---
[address] [address] CONSULTATION REPORT PATIENT: DERIK PORTILLO : 1950 MR#: [id number] ADMIT: 08/31/2016 JOB ID: [id number] DATE OF SERVICE: 09/04/2016 INFECTIOUS DISEASE CONSULTATION: I thank Dr. Satya Marques for this consult. REASON FOR CONSULTATION: Bacterial pneumonia following an upper respiratory tract infection. 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 She went to visit her daughter in the [place] over the holidays and while there developed an upper respiratory tract infection characterized by some cough, shortness of breath, fatigue and generalized malaise, and perhaps a low-grade fever and chills. She returned from the [facility] area still feeling not quite right, but was getting along okay until last , which would be August 27, when she became worse, with increasing cough, shortness of breath, fatigue, fevers, chills, and malaise. This was associated also with a bit of pleuritic chest pain. Eventually these symptoms were sufficiently severe she sought evaluation in Urgent Care, where she was found to be hypoxic and tachycardic, and was therefore admitted to the hospital for evaluation and treatment. This admission occurred on the night of August 31, so her 1st official day here in the hospital really was September 01, or three days ago. During the time she has been here in the hospital she reports she has started to gradually improve with azithromycin and ceftriaxone directed at what was thought to be a community-acquired pneumonia. The patient's family is extremely concerned about her situation as they have been arriving today and have the understanding that she has sepsis and is worsening. Part of this concern about worsening infection has been generated by a rising white blood count which has been climbing even as the patient seems to be slowly improving. This afternoon we interviewed the patient. She states that she is feeling somewhat better. Her fevers and chills have resolved. She continues to have a nonproductive cough and feel tired, but reports that in general she is getting better. She is not significantly short of breath, though she is using some supplemental oxygen still to maintain her O2 sats. Her GI symptoms, which were mild during this illness, have now apparently resolved. She notes she had a very minimal amount of suprapubic tenderness during the early stages of this illness, as well, which has also improved. PAST MEDICAL HISTORY: 1. Hypertension. 2. GERD. 3. A variety of seasonal allergies. 4. Surgical hypothyroidism. SOCIAL HISTORY: The patient is a lifelong noncigarette smoker who occasionally has a glass of wine. She is a who works at one of the local [employer] and has an extended family here in the area. FAMILY HISTORY: Positive for strokes but negative for tuberculosis. REVIEW OF SYSTEMS: Today, the patient has some sinus fullness which she reports is an ongoing problem for her. She has no other specific headache, no visual change. No jaw claudication. No forehead tenderness. No sore throat. No nausea, vomiting or diarrhea. She does note decreased hearing bilaterally which seemed to start about when she came in the hospital. She has ongoing shortness of breath which is perhaps better than on admission and a nonproductive cough. She has no dysuria, urgency, or frequency. No significant pain in the joints, but just overall weakness. PHYSICAL EXAMINATION: Reveals an afebrile woman. No acute distress. Temp 36.5. She was febrile one time to 38 degrees on the which was about two days into this now four day long admission. Now her temp is 36.5, pulse 96, respiratory rate 20, blood pressure 131/68. She is saturating pretty well on 4 L. Examination of the head reveals no trauma. The temporal arteries are nontender. Eyes: Without conjunctivitis. Oral cavity without thrush or hairy leukoplakia. Neck: Supple. No adenopathy. She has a scar from her thyroidectomy. Lungs are notable for a few crackles at the right base but really not terribly impressive. Cardiac tones regular rate and rhythm. The abdomen is soft and nontender without organomegaly. She has no skin rash. Her joints are not swollen or tender. She has no significant peripheral edema. She is neurologically intact and able to give a good history. LABORATORIES: Include a white count which was 17,000 in the ER, climbed to 20,000 on the , and is now 23,000. Her platelet count has been in the 400,000's throughout, having started at 456 and is now 481. Her differential white count was quite benign when she entered the ED. She has developed 7% myelocytes during her hospital stay, which is interesting, and a sed rate was measured and is off the charts at greater than 140. A C-reactive protein goes along with that and is 21.3. Creatinine is 0.54. LFTs are normal. ALT is 41. Albumin is 2.3 and was 3.4 when she arrived in the emergency department. Procalcitonin was 6.5 on the night of the . The next morning on the , though, it was down to 3.4, and today it is down to 0.5. Urinalysis had 11-50 white cells and the urine grew E. coli which was a quite susceptible strain with a ceftriaxone REINIER less than one. Blood cultures are negative. Respiratory multiplex viral PCR panel negative. Pneumococcal and Legionella antigens negative. MRSA screen negative. IMAGING: Includes two chest x-rays which we carefully reviewed with the attending, Dr. Marques. They show bibasilar pneumonia. There is little change between the two radiographs. IMPRESSION: This relatively healthy woman seems to have developed a viral respiratory tract infection during her long trip to [place] over the holidays. This stuttered along for a week or two and then got much worse a week ago when she had increasing fevers, chills, cough, and shortness of breath. This eventually led her to the ED and admission on August 31. This probably is a fairly typical case of a person with a viral URI who eventually develops a bacterial superinfection. We have strong evidence of bacterial superinfection based upon the high procalcitonin, which has now fallen steadily and in fact has fallen by over 90% during her four days here in the hospital. This strongly suggests a good response to antibiotics and the patient in fact reports she is gradually getting better. The only concerns I have about this case is the progressively increasing white count with left shift. She did receive an intravenous dose of steroids in the ER for unclear reasons and subsequently received at least at least one day of oral steroids, though these have now been stopped. I suspect some of the increase in white count is a reaction to the steroids. though one would hope that would turn around in the next day or two. I think that the declining procalcitonin outweighs the concerns over the rising total white blood count. We do dating to keep an eye on the diff, which has myelocytes in it. The only other concern here from my point of view is that her albumin is a little low and her sed rate is extremely high at greater than 140 with a CRP greater than 21. These would seem to be extraordinarily high levels for a community-acquired pneumonia and make me wonder if there could be some underlying malignancy or other process such as temporal arteritis, polymyalgia rheumatica, or vasculitis, though at this point I do not see any clear-cut evidence of any of that. RECOMMENDATIONS: 1. I would continue with ceftriaxone and azithromycin until the patient has clearly improved. 2. If her hearing loss continues, one can simply discontinue the azithromycin as she has already received three or four days of this and continue with the ceftriaxone alone. 3. I would probably continue the ceftriaxone for a total of 5-7 days, but if the patient was much improved, discharge on oral antibiotics to finish a 7-10 day course might be reasonable. 4. I agree completely with Dr. Marques's plan to do a chest CT and better delineate her pulmonary infiltrates. To this I would add a CT scan of the sinuses as she is complaining of some sinus pain and pressure. 5. Will continue to follow this patient. Will see her on Wednesday if she remains in the hospital. Thank you very much for this consult.
--- NOTE | 2016-09-04 18:18 | DRSVH ---
PROCEDURE: CT CHEST WITH CONTRAST ([id number]) INDICATIONS: Pneumonia with increasing WBC TECHNIQUE: After the administration of intravenous contrast, 5 mm thick sections acquired from the pulmonary api brianna to the posterior costophrenic angles. 7 mm thick coronal and sagittal MIP reformats were acquire d. For radiation dose reduction, the following was used: automated exposure control, adjustment of mA and/or kV according to patient size. COMPARISON: [facility], CR, XR CHEST 2VW, 09/02/2016, 9:25. FINDINGS: Image quality: Excellent. Lungs and pleura: There is improving acute air space opacities with reference to the prior plain lynn m from 2 days ago, and with no new area of alveolar infiltration. Very small bilateral pleural effusi ons are present, but no pneumothorax. Central and peripheral airways are patent and normal in calibe r. Mediastinum: Heart size is normal. No pericardial effusion. No mediastinal or hilar adenopathy by size criteria. Thoracic aorta and central pulmonary arteries are normal in size. Esophagus is kris l in caliber. No hiatal hernia. Bones and chest wall: No suspicious bony lesions. No vertebral body compression fractures. No axil samy or supraclavicular adenopathy by size criteria. Thyroid gland appears normal where well visuali zed but is diminutive on the left and not visualized as a discrete structure on the right. Abdomen: Visualized upper abdominal solid organs appear normal. Upper abdominal bowel loops are nor mal in caliber. IMPRESSION: Slight improvement in bibasilar moderately severe pneumonia. Slight pleural effusions, without evidence of empyema formation. The left thyroid lobe is diminutive, the right thyroid lobe i s essentially absent. Please correlate clinically for whether prior thyroidectomy on the right has b een performed. Dictated by: Darius Griffin M.D. on 09/04/2016 at 18:16 Approved by: Darius Griffin M.D. on 09/04/2016 at 18:16
--- NOTE | 2016-09-04 18:51 | DRSVH ---
PROCEDURE: CT SINUSES ([id number]) INDICATIONS: sinusitis and extreme hi wbc TECHNIQUE: Noncontrast 3.0 mm axial images acquired from the frontal sinuses to the mid-sella, with coronal and sagittal reformats. COMPARISON: None. FINDINGS: Image quality: Excellent. Maxillary Sinuses: No bony remodeling or destruction. Sinuses are clear. Ethmoid Air Cells: No bony remodeling or destruction. Sinuses are mildly abnormal with mucosal thic kening involving the anterior ethmoid air cells bilaterally, right slightly greater than left.. Sphenoid Sinuses: No bony remodeling or destruction. Sinuses are clear. Frontal Sinuses: No bony remodeling or destruction. Sinuses are clear. Ostiomeatal Complexes: Ostiomeatal complexes are patent. No Deandra cells. IMPRESSION: Anterior ethmoid air cell mild mucosal thickening, likely chronic, right slightly greate r than left in overall mild in severity. Dictated by: Darius Griffin M.D. on 09/04/2016 at 18:50 Approved by: Darius Griffin M.D. on 09/04/2016 at 18:50
--- NOTE | 2016-09-04 19:09 | DRSVH ---
PROCEDURE: US RENAL SONOGRAM INDICATIONS: Possible Hydronephrosis TECHNIQUE: Real-time scanning was performed of the kidneys and bladder, with image documentation. COMPARISON: None. FINDINGS: Kidneys: Kidneys are asymmetric in size. Right kidney measures 7.5 cm long; left kidney measures 9. 0 cm long. Right renal cortical thickness is 1.1 cm; left renal cortical thickness is 1.0 cm. Renal cortical echotexture is normal. No hydronephrosis or nephrolithiasis. No suspicious solid mass les ions. Note is made of a left kidney simple cyst measuring up to 1.7 cm and also a left inferior pole peripelvic cysts measuring up to 9 mm. Bladder: Pre-void bladder volume is 121 mL. Post-void residual is 19 mL. Pre-void images demonstra te no intraluminal masses or stones. On pre-void images, right but not the left ureteral jets are no bear with color Doppler interrogation. (Of note, ureteral jets may not be detectable in up to 25% of cases due to insufficient differences in specific gravity between ureteral and bladder urine). Miscellaneous: No free pelvic fluid. IMPRESSION: No hydronephrosis found. Several scattered small simple cysts are seen at the kidneys a s was previously documented during CT scanning. Dictated by: Darius Griffin M.D. on 09/04/2016 at 19:08 Approved by: Darius Griffin M.D. on 09/04/2016 at 19:08
--- NOTE | 2016-09-04 22:15 | PCM.PNMED ---
Subjective Date of Service Sep 04, 2016 Subjective Patient complains of nasal stuffiness and decreased hearing. She continues to have some cough. Overall feels about the same as yesterday which was markedly improved since admission. However, she has not improved since yesterday. Exam Vital Signs Vital Sign - Last Date Time Temp Pulse Resp B/P Pulse Ox O2 Delivery O2 Flow Rate FiO2 09/04/16 21:13 37.9 110 24 105/72 92 Nasal Cannula 4.00 Intake and Output 09/03/16 09/03/16 09/04/16 Cumulative From/Thru 15:00 23:00 07:00 08/31/16 10:27 - 09/04/16 06:55 Intake Total 500 ml 1168 ml 2210 ml 28186 ml Output Total 650 ml 1550 ml 1200 ml 7675 ml Balance -150 ml -382 ml 1010 ml 3149 ml Intake Oral 500 ml 1168 ml 400 ml 4586 ml IV Total 1810 ml 6218 ml Tube Irrigant 20 ml Output Urine Total 650 ml 1550 ml 1200 ml 7675 ml # Bowel Movements 2 2 0 7 Exam General: Patient is lying supine in bed and is in no apparent distress. She is more awake and alert and responsive. HEENT: Head is atraumatic normocephalic. Eyes: Pupils are equally round and reactive to light and accommodation. Extraocular muscles are intact. Sclera are white anicteric. Subconjunctival mucosa is pink. Ears and nose are unremarkable. Oropharynx: There is no mucosal lesions, there is no thrush, there is no pharyngitis. Neck: Is supple, there are no nodes, or masses or tenderness. Chest: The bibasilar rales have improved and there is significant clearing. There is minimal wheezing. There are no rhonchi or rubs. Heart: Rate, rhythm is regular. There is no murmur, rub or gallop. Abdomen: Good bowel sounds are present. Abdomen is soft, nontender, no organomegaly or masses were appreciated. Extremities: Are symmetrical and well perfused. There is no edema, there is no cellulitis, no rash. Neurologic: There are no focal neurological deficits. Cranial nerves II through XII are intact except there is decreased hearing evident bilaterally. There are no sensory or motor deficits. Psychiatric: Patients mood is calm and shows no sign of agitation. Genital: Deferred Rectal: Deferred Lab and Diagnostics Result Diagram: 09/04/1661409/04/16614 Microbiology Strep pneumo Ag negative Name: DERIK PORTILLO Age/Sex: 66/F Attend Dr: Ron West MD Acct: [id number] Unit: [id number] Status: ADM IN Location: [facility] 3012-1 Re08/31/16 Disch: Specimen: [id number] Collected: 08/31/16 Status: COMP Req#: [id number] Received: 08/31/16 Source: URINE CC Sp Desc : PP Robbie Dr: Will Palumbo MD Ordered: URINE CULT Procedure Result Verified Site Microbiology REINIER CULT URINE Final 09/02/16-0803 Organism 1 ESCHERICHIA COLI U COLONY COUNT/QUANTITY >100,000 CFU/ml Cefazolin-predicts results for the oral agents, cefaclor,cefdinir, cefpodoximen, cefprozil, cefuroximne axetil, cephalexin and loracarbed when used for therapy of uncomplicated UTI's due to E. coli, K. pneumoniae, and Proteus mirabilis. Cefpodoxime, cefdinir and cefuroxime axetil may be tested individually because some isolates may be susceptible to these agents while testing resistant to cefazolin. (CLSI W416-S34 pg 53) 1. ESCHERICHIA COLI M.I.C Interp --------- ------ * AMOXICILLIN/CLAVULATE 16 I * AMPICILLIN >=32 R * CEFAZOLIN (CEPHALOSPORIN) UTI 16 S * CEFEPIME <=1 S * CEFTRIAXONE <=1 S * CEFUROXIME SODIUM 16 I * CIPROFLOXACIN <=0.25 S * ERTAPENEM <=0.5 S * GENTAMICIN <=1 S * IMIPENEM <=1 S * LEVOFLOXACIN <=0.12 S * NITROFURANTOIN <=16 S * TETRACYCLINE <=1 S * TOBRAMYCIN <=1 S * TRIMETHOPRIM/SULFAMETHOXAZOLE <=20 S X-Rays, CTs and MRIs PROCEDURE: X-RAY CHEST ONE VIEW, PORTABLE ([id number]) IMPRESSION: Bibasilar lung opacities suspicious for aspiration versus pneumonia. Dictated by: Lucia Betancourt MD, PhD on 08/31/2016 at 11:23 PROCEDURE: X-RAY CHEST, TWO VIEWS ([id number]) INDICATIONS: Follow up for pneumonia TECHNIQUE: 2 views of the chest were acquired. COMPARISON: [facility], CR, XR CHEST 1VW (PORTABLE), 08/31/2016, 10: 45. [facility], CR, CHEST 2VW, 11/14/2013, 11:05. FINDINGS: Surgical changes and devices: None. Lungs and pleura: No pleural effusions or pneumothorax. Patchy air space opacities noted in the posterior aspect lung bases bilaterally suspicious for pneumonia. Mediastinum: Mediastinal contours are normal. Heart size is normal. Bones and chest wall: No suspicious bony abnormalities. Soft tissues appear unremarkable. IMPRESSION: Bibasilar pneumonia not significantly changed compared to prior study obtained 08/31/16. Recommend followup imaging to resolution of the bibasilar opacities to exclude ng neoplastic process. Dictated by: Lucia Betancourt MD, PhD on 09/02/2016 at 9:41 Approved by: Lucia Betancourt MD, PhD on 09/02/2016 at 9:41 PROCEDURE: CT SINUSES ([id number]) INDICATIONS: sinusitis and extreme hi wbc TECHNIQUE: Noncontrast 3.0 mm axial images acquired from the frontal sinuses to the mid- sella, with coronal and sagittal reformats. COMPARISON: None. FINDINGS: Image quality: Excellent. Maxillary Sinuses: No bony remodeling or destruction. Sinuses are clear. Ethmoid Air Cells: No bony remodeling or destruction. Sinuses are mildly abnormal with mucosal thickening involving the anterior ethmoid air cells bilaterally, right slightly greater than left.. Sphenoid Sinuses: No bony remodeling or destruction. Sinuses are clear. Frontal Sinuses: No bony remodeling or destruction. Sinuses are clear. Ostiomeatal Complexes: Ostiomeatal complexes are patent. No Deandra cells. IMPRESSION: Anterior ethmoid air cell mild mucosal thickening, likely chronic, right slightly greater than left in overall mild in severity. Dictated by: Darius Griffin M.D. on 09/04/2016 at 18:50 Approved by: Darius Griffin M.D. on 09/04/2016 at 18:50 PROCEDURE: CT CHEST WITH CONTRAST ([id number]) INDICATIONS: Pneumonia with increasing WBC TECHNIQUE: After the administration of intravenous contrast, 5 mm thick sections acquired from the pulmonary apices to the posterior costophrenic angles. 7 mm thick coronal and sagittal MIP reformats were acquired. For radiation dose reduction , the following was used: automated exposure control, adjustment of mA and/or kV according to patient size. COMPARISON: [facility], CR, XR CHEST 2VW, 09/02/2016, 9:25. FINDINGS: Image quality: Excellent. Lungs and pleura: There is improving acute air space opacities with reference to the prior plain film from 2 days ago, and with no new area of alveolar infiltration. Very small bilateral pleural effusions are present, but no pneumothorax. Central and peripheral airways are patent and normal in caliber. Mediastinum: Heart size is normal. No pericardial effusion. No mediastinal or hilar adenopathy by size criteria. Thoracic aorta and central pulmonary arteries are normal in size. Esophagus is normal in caliber. No hiatal hernia. Bones and chest wall: No suspicious bony lesions. No vertebral body compression fractures. No axillary or supraclavicular adenopathy by size criteria. Thyroid gland appears normal where well visualized but is diminutive on the left and not visualized as a discrete structure on the right. Abdomen: Visualized upper abdominal solid organs appear normal. Upper abdominal bowel loops are normal in caliber. IMPRESSION: Slight improvement in bibasilar moderately severe pneumonia. Slight pleural effusions, without evidence of empyema formation. The left thyroid lobe is diminutive, the right thyroid lobe is essentially absent. Please correlate clinically for whether prior thyroidectomy on the right has been performed. Dictated by: Darius Griffin M.D. on 09/04/2016 at 18:16 Approved by: Darius Griffin M.D. on 09/04/2016 at 18:16 Assessment & Plan This is a 66 year old woman with past medical history significant for hypertension, iatrogenic hypothyroidism, and seasonal allergies with inhaler use PRN who presented to the ED via EMS from urgent care due to shortness of breath and productive cough for the last 3 weeks. acute, active # Severe sepsis, present on admission, SIRS+HR 120 RR 22 WBC 16.6 with O2 sat 80 % on RA, source: pneumonia and Escherichia coli urinary tract infection with babsilar opacities on CXR, UTI secondary to.Escherichia coli, strep Ag/viral PCR neg, -Patient initially appears clinically improving with antibiotics, will continue Ceftriaxone and Azithromycin. -However, her white blood cell count is higher again today. I suspect this is due to the white blood cell count lagging behind the patient's clinical response and hopefully it has peaked. Also elevation of white blood cell count could be due to steroid use however she did not receive any steroids for the last 2 days. -The prednisone was stopped 09/01/2016 -O2 supplement as needed, target>95%, should be weaned off with clinically improvement -Repeat chest x-ray shows bibasilar infiltrates unchanged since admission. # Urinary tract infection with Escherichia coli present at the time of admission -Continue Rocephin -Continue IV fluids # Decreased hearing -Could be due to acute viral illness after her trip to [place]. -Could be do to a side effect from the azithromycin. -We will add Zyrtec this evening. # Continued rise in white blood cell count -I have consulted Dr. Sheehan of infectious disease and he was so kind to see the patient today in consultation. His recommendations are as follows: "1. I would continue with ceftriaxone and azithromycin until the patient has clearly improved. 2. If her hearing loss continues, one can simply discontinue the azithromycin as she has already received three or four days of this and continue with the ceftriaxone alone. 3. I would probably continue the ceftriaxone for a total of 5-7 days, but if the patient was much improved, discharge on oral antibiotics to finish a 7-10 day course might be reasonable. 4. I agree completely with Dr. Marques's plan to do a chest CT and better delineate her pulmonary infiltrates. To this I would add a CT scan of the sinuses as she is complaining of some sinus pain and pressure. 5. Will continue to follow this patient. Will see her on Wednesday if she remains in the hospital." chronic, stable # Hypertension, present on admission, continue lisinopril # Hypothyroidism 2/2 partial thyroidectomy, present on admission, continue home levothyroxine. Check TSH. Continue general diet Disposition: As patient's white blood cell count is slightly worse again today, I suspect the patient will be here at least another 48 hours. Pain Evaluation: Adequate Pain Control GI Prophylaxis: Proton Pump Inhibitor VTE Prophylaxis: Sub-Q Enoxaparin VTE Mechanical Devices: Venous Foot Pump Resuscitation Status: CPR: Attempt Resuscitation Satya Marques MD Sep 04, 2016 22:15
[2016-09-05 05:35] VITALS: BP 127/82; PULSE 88; RESP 20; O2SAT 96
--- NOTE | 2016-09-05 06:29 | NUR ---
Cough pt has some harsh, unproductive cough which causes her intermittent pleuritic pain. Pt refuses pain meds and had otherwise uneventful shift.
[2016-09-05] MEDS: 0.9% NaCl + KCl 20 mEq/L 1,000 ML IV SCH ×2 (06:52→20:22)
[2016-09-05 07:22] LABS: Mean Corpuscular Hemoglobin 30.4 pg (27.0-35.0); Mean Corpuscular Volume 89.7 fL (81-100); Platelet Count 454 bil/L (150-400)
[2016-09-05 08:31] LABS: BASOPHILS % (AUTO) 0 % (0-3); EOSINOPHILS % (AUTO) 1 % (0-5); MONOCYTES % (AUTO) 5 % (4-12); NEUTROPHILS % (AUTO) 72 % (40-74)
[2016-09-05] MEDS: cefTRIAXone Inj 1,000 MG in IV Premix 1 EACH IV SCH ×2 (08:38→20:22)
[2016-09-05 08:39] VITALS: BP 135/79; PULSE 93; RESP 21; O2SAT 94
[2016-09-05] MEDS: Pantoprazole 40 mg ER24 Tablet PO SCH (08:39)
[2016-09-05] MEDS: Potassium Chloride 20 mEq SR Tablet PO SCH (08:39)
[2016-09-05] MEDS: Ascorbic Acid 500 mg Tablet PO SCH (08:39)
[2016-09-05 09:20] LABS: ERYTHROCYTE SEDIMENTATION RATE > 140 mm/hr (0-40)
[2016-09-05] MEDS: Azithromycin Inj 500 MG in Dextrose 5% w/Vial Mate 250 ML IV SCH (11:24)
--- NOTE | 2016-09-05 12:01 | NUR ---
LISBETH signed. ANIKET Shukla
[2016-09-05 12:59] VITALS: BP 116/76; PULSE 101; RESP 20; O2SAT 97
--- NOTE | 2016-09-05 14:55 | NUR ---
Resp/hearing Pt continues to have dry, non-productive cough intermittently. Denies pain. Reports hearing is better today than yesterday.
[2016-09-05 20:11] VITALS: PULSE 98; O2SAT 97
[2016-09-05] MEDS: guaiFENesin DM 200-20 mg/10 mL Syrup PO PRN (20:26)
[2016-09-05 21:15] VITALS: BP 134/85; PULSE 95; RESP 20; O2SAT 96
--- NOTE | 2016-09-05 22:25 | PCM.PNMED ---
Subjective Date of Service Sep 05, 2016 Subjective Patient is beginning to feel little bit better again today. She continues to have cough but it is much better. Exam Vital Signs Vital Sign - Last Date Time Temp Pulse Resp B/P Pulse Ox O2 Delivery O2 Flow Rate FiO2 09/05/16 21:15 37.1 95 20 134/85 96 Nasal Cannula 4.00 Intake and Output 09/04/16 09/04/16 09/05/16 Cumulative From/Thru 15:00 23:00 07:00 08/31/16 10:27 - 09/05/16 06:08 Intake Total 1924 ml 1018 ml 97775 ml Output Total 1150 ml 1340 ml 26812 ml Balance 774 ml -322 ml 3601 ml Intake Oral 886 ml 200 ml 5672 ml IV Total 1038 ml 818 ml 8074 ml Tube Irrigant 20 ml Output Urine Total 1150 ml 1340 ml 99665 ml # Bowel Movements 1 8 Exam General: Patient is lying supine in bed and is in no apparent distress. She continues to be more awake and alert and responsive. HEENT: Head is atraumatic normocephalic. Eyes: Pupils are equally round and reactive to light and accommodation. Extraocular muscles are intact. Sclera are white anicteric. Subconjunctival mucosa is pink. Ears and nose are unremarkable. Oropharynx: There is no mucosal lesions, there is no thrush, there is no pharyngitis. Neck: Is supple, there are no nodes, or masses or tenderness. Chest: The breath sounds are much clearer to auscultation today. There are a few bibasilar crackles still. There is minimal wheezing. There are no rhonchi or rubs. Heart: Rate, rhythm is regular. There is no murmur, rub or gallop. Abdomen: Good bowel sounds are present. Abdomen is soft, nontender, no organomegaly or masses were appreciated. Extremities: Are symmetrical and well perfused. There is no edema, there is no cellulitis, no rash. Neurologic: There are no focal neurological deficits. Cranial nerves II through XII are intact except there is decreased hearing evident bilaterally. However, her hearing appears to have improved today. There are no sensory or motor deficits. Psychiatric: Patients mood is calm and shows no sign of agitation. Genital: Deferred Rectal: Deferred Lab and Diagnostics Result Diagram: 1/45 09/05/16 0645 Microbiology Strep pneumo Ag negative Name: DERIK PORTILLO Age/Sex: 66/F Attend Dr: Ron West MD Acct: [id number] Unit: [id number] Status: ADM IN Location: [facility] – [place], [place] 3012-1 Re08/31/16 Disch: Specimen: [id number] Collected: 08/31/16 Status: COMP Req#: [id number] Received: 08/31/16 Source: URINE CC Sp Desc : ANGELITA Avalos Dr: Will Palumbo MD Ordered: URINE CULT Procedure Result Verified Site Microbiology REINIER CULT URINE Final 09/02/16-0803 Organism 1 ESCHERICHIA COLI U COLONY COUNT/QUANTITY >100,000 CFU/ml Cefazolin-predicts results for the oral agents, cefaclor,cefdinir, cefpodoximen, cefprozil, cefuroximne axetil, cephalexin and loracarbed when used for therapy of uncomplicated UTI's due to E. coli, K. pneumoniae, and Proteus mirabilis. Cefpodoxime, cefdinir and cefuroxime axetil may be tested individually because some isolates may be susceptible to these agents while testing resistant to cefazolin. (CLSI [id number] pg 53) 1. ESCHERICHIA COLI M.I.C Interp --------- ------ * AMOXICILLIN/CLAVULATE 16 I * AMPICILLIN >=32 R * CEFAZOLIN (CEPHALOSPORIN) UTI 16 S * CEFEPIME <=1 S * CEFTRIAXONE <=1 S * CEFUROXIME SODIUM 16 I * CIPROFLOXACIN <=0.25 S * ERTAPENEM <=0.5 S * GENTAMICIN <=1 S * IMIPENEM <=1 S * LEVOFLOXACIN <=0.12 S * NITROFURANTOIN <=16 S * TETRACYCLINE <=1 S * TOBRAMYCIN <=1 S * TRIMETHOPRIM/SULFAMETHOXAZOLE <=20 S X-Rays, CTs and MRIs PROCEDURE: X-RAY CHEST ONE VIEW, PORTABLE ([id number]) IMPRESSION: Bibasilar lung opacities suspicious for aspiration versus pneumonia. Dictated by: Lucia Betancourt MD, PhD on 08/31/2016 at 11:23 PROCEDURE: X-RAY CHEST, TWO VIEWS ([id number]) INDICATIONS: Follow up for pneumonia TECHNIQUE: 2 views of the chest were acquired. COMPARISON: [facility], CR, XR CHEST 1VW (PORTABLE), 08/31/2016, 10: 45. [facility], , CHEST 2VW, 11/14/2013, 11:05. FINDINGS: Surgical changes and devices: None. Lungs and pleura: No pleural effusions or pneumothorax. Patchy air space opacities noted in the posterior aspect lung bases bilaterally suspicious for pneumonia. Mediastinum: Mediastinal contours are normal. Heart size is normal. Bones and chest wall: No suspicious bony abnormalities. Soft tissues appear unremarkable. IMPRESSION: Bibasilar pneumonia not significantly changed compared to prior study obtained 08/31/16. Recommend followup imaging to resolution of the bibasilar opacities to exclude ng neoplastic process. Dictated by: Lucia Betancourt MD, PhD on 09/02/2016 at 9:41 Approved by: Lucia Betancourt MD, PhD on 09/02/2016 at 9:41 PROCEDURE: CT SINUSES ([id number]) INDICATIONS: sinusitis and extreme hi wbc TECHNIQUE: Noncontrast 3.0 mm axial images acquired from the frontal sinuses to the mid- sella, with coronal and sagittal reformats. COMPARISON: None. FINDINGS: Image quality: Excellent. Maxillary Sinuses: No bony remodeling or destruction. Sinuses are clear. Ethmoid Air Cells: No bony remodeling or destruction. Sinuses are mildly abnormal with mucosal thickening involving the anterior ethmoid air cells bilaterally, right slightly greater than left.. Sphenoid Sinuses: No bony remodeling or destruction. Sinuses are clear. Frontal Sinuses: No bony remodeling or destruction. Sinuses are clear. Ostiomeatal Complexes: Ostiomeatal complexes are patent. No Deandra cells. IMPRESSION: Anterior ethmoid air cell mild mucosal thickening, likely chronic, right slightly greater than left in overall mild in severity. Dictated by: Darius Griffin M.D. on 09/04/2016 at 18:50 Approved by: Darius Griffin M.D. on 09/04/2016 at 18:50 PROCEDURE: CT CHEST WITH CONTRAST ([id number]) INDICATIONS: Pneumonia with increasing WBC TECHNIQUE: After the administration of intravenous contrast, 5 mm thick sections acquired from the pulmonary apices to the posterior costophrenic angles. 7 mm thick coronal and sagittal MIP reformats were acquired. For radiation dose reduction , the following was used: automated exposure control, adjustment of mA and/or kV according to patient size. COMPARISON: [facility], CR, XR CHEST 2VW, 09/02/2016, 9:25. FINDINGS: Image quality: Excellent. Lungs and pleura: There is improving acute air space opacities with reference to the prior plain film from 2 days ago, and with no new area of alveolar infiltration. Very small bilateral pleural effusions are present, but no pneumothorax. Central and peripheral airways are patent and normal in caliber. Mediastinum: Heart size is normal. No pericardial effusion. No mediastinal or hilar adenopathy by size criteria. Thoracic aorta and central pulmonary arteries are normal in size. Esophagus is normal in caliber. No hiatal hernia. Bones and chest wall: No suspicious bony lesions. No vertebral body compression fractures. No axillary or supraclavicular adenopathy by size criteria. Thyroid gland appears normal where well visualized but is diminutive on the left and not visualized as a discrete structure on the right. Abdomen: Visualized upper abdominal solid organs appear normal. Upper abdominal bowel loops are normal in caliber. IMPRESSION: Slight improvement in bibasilar moderately severe pneumonia. Slight pleural effusions, without evidence of empyema formation. The left thyroid lobe is diminutive, the right thyroid lobe is essentially absent. Please correlate clinically for whether prior thyroidectomy on the right has been performed. Dictated by: Darius Griffin M.D. on 09/04/2016 at 18:16 Approved by: Darius Griffin M.D. on 09/04/2016 at 18:16 Assessment & Plan This is a 66 year old woman with past medical history significant for hypertension, iatrogenic hypothyroidism, and seasonal allergies with inhaler use PRN who presented to the ED via EMS from urgent care due to shortness of breath and productive cough for the last 3 weeks. acute, active # Severe sepsis, present on admission, SIRS+HR 120 RR 22 WBC 16.6 with O2 sat 80 % on RA, source: pneumonia and Escherichia coli urinary tract infection with babsilar opacities on CXR, UTI secondary to.Escherichia coli, strep Ag/viral PCR neg, -Patient is clinically improving with antibiotics, will continue Ceftriaxone and Azithromycin. -However, her white blood cell has improved today. I suspect this is due to the white blood cell count lagging behind the patient's clinical response and hopefully it peaked on 09/04/2015. Also, elevation of white blood cell count could be due to steroid use. -The prednisone was stopped 09/01/2016 -O2 supplement as needed, target>95%, should be weaned off with clinical improvement -Repeat chest x-ray shows bibasilar infiltrates unchanged since admission. # Urinary tract infection with Escherichia coli present at the time of admission -Continue Rocephin -Continue IV fluids # Decreased hearing -Could be due to acute viral illness after her trip to [place] to visit her grandchildren who are all sick with a viral illness. Her symptoms are improved after taking Zyrtec last evening. -Could be do to a side effect from the azithromycin. -We will continue Zyrtec. # Elevated white blood cell count -I have consulted Dr. Sheehan of infectious disease and he was so kind to see the patient in consultation. His recommendations are as follows: "1. I would continue with ceftriaxone and azithromycin until the patient has clearly improved. 2. If her hearing loss continues, one can simply discontinue the azithromycin as she has already received three or four days of this and continue with the ceftriaxone alone. 3. I would probably continue the ceftriaxone for a total of 5-7 days, but if the patient was much improved, discharge on oral antibiotics to finish a 7-10 day course might be reasonable. 4. I agree completely with Dr. Marques's plan to do a chest CT and better delineate her pulmonary infiltrates. To this I would add a CT scan of the sinuses as she is complaining of some sinus pain and pressure. 5. Will continue to follow this patient. Will see her on Wednesday if she remains in the hospital." chronic, stable # Hypertension, present on admission, continue lisinopril # Hypothyroidism 2/2 partial thyroidectomy, present on admission, continue home levothyroxine. Check TSH. Continue general diet Disposition: As patient's white blood cell count is still elevated, and the patient appears to be just turning the corner and recovery from her sepsis episode, pneumonia and urinary tract infection' I suspect the patient will be here at least another 48 hours. Pain Evaluation: Adequate Pain Control GI Prophylaxis: Proton Pump Inhibitor VTE Prophylaxis: Sub-Q Enoxaparin VTE Mechanical Devices: Venous Foot Pump Resuscitation Status: CPR: Attempt Resuscitation Satya Marques MD Sep 05, 2016 22:25
[2016-09-06 05:21] VITALS: BP 136/82; PULSE 90; RESP 18; O2SAT 96
[2016-09-06 06:20] LABS: Mean Corpuscular Hemoglobin 30.1 pg (27.0-35.0); Mean Corpuscular Volume 91.4 fL (81-100); Platelet Count 508 bil/L (150-400)
[2016-09-06 06:54] LABS: Magnesium 2.1 mg/dL (1.6-2.6)
[2016-09-06 07:09] LABS: BASOPHILS % (AUTO) 0 % (0-3); EOSINOPHILS % (AUTO) 1 % (0-5); MONOCYTES % (AUTO) 6 % (4-12); NEUTROPHILS % (AUTO) 82 % (40-74)
[2016-09-06] MEDS: 0.9% NaCl + KCl 20 mEq/L 1,000 ML IV SCH ×2 (07:56→20:02)
[2016-09-06] MEDS: cefTRIAXone Inj 1,000 MG in IV Premix 1 EACH IV SCH ×2 (07:56→20:01)
[2016-09-06] MEDS: Potassium Chloride 20 mEq SR Tablet PO SCH (07:57)
[2016-09-06] MEDS: Ascorbic Acid 500 mg Tablet PO SCH (07:57)
[2016-09-06] MEDS: Pantoprazole 40 mg ER24 Tablet PO SCH (07:57)
[2016-09-06 09:55] VITALS: BP 112/74; PULSE 96; RESP 20; O2SAT 97
--- NOTE | 2016-09-06 12:03 | NUR ---
Social Work-readiness for discharge: Data:EMR Reviewed. Pt is on day 6 of hospitalization for pneumonia per H&P. Pt is not medically stable, but MD anticipates tomorrow. Per RN notes, pt has been up independent in her room. Pt still remains on 4 liters of O2, which is not pt's baseline. SW confirms plan of discharge home with daughter when medically stable, pt declining any HH services at this time. R/O home O2 needs. Pt's family to provide transport home. No discharge needs identified. SW will continue to follow if needs arise. Assessment:Pt who is independent at baseline. Plan:Pt to discharge home when medically stable via POV. Pt's daughter to provide support at discharge. R/O home O2 needs.No discharge needs identified. SW will continue to follow if needs arise. ANIKET Shukla
[2016-09-06] MEDS: Azithromycin Inj 500 MG in Dextrose 5% w/Vial Mate 250 ML IV SCH (12:14)
[2016-09-06 13:57] VITALS: BP 125/79; PULSE 105; RESP 16; O2SAT 95
--- NOTE | 2016-09-06 17:34 | NUR ---
Respiratory Pt states she continues to feel better, hearing is better. Oxygen needs have decreased to 2L NC, with SpO2 mid-90s. Mild SOB with exertion. Cough is intermittent and dry, non-productive. Declines prn cough medication. Denies pain.
[2016-09-06] MEDS: guaiFENesin DM 200-20 mg/10 mL Syrup PO PRN (18:22)
[2016-09-06 20:04] VITALS: PULSE 105; O2SAT 94
[2016-09-06 22:33] VITALS: BP 113/72; PULSE 102; RESP 16; O2SAT 91
--- NOTE | 2016-09-06 22:41 | PCM.PNMED ---
Subjective Date of Service Sep 06, 2016 Subjective Patient has no new complaints and is beginning to feel a bit better. Her appetite is improved. She is a little discouraged as she is still on 4 L of oxygen per nasal cannula. She is on no oxygen at home. Exam Vital Signs Vital Sign - Last Date Time Temp Pulse Resp B/P Pulse Ox O2 Delivery O2 Flow Rate FiO2 09/06/16 20:04 105 94 Room Air 09/06/16 13:57 36.8 16 125/79 3.00 Intake and Output 09/05/16 09/05/16 09/06/16 Cumulative From/Thru 15:00 23:00 07:00 08/31/16 10:27 - 09/06/16 05:35 Intake Total 2205 ml 1600 ml 30610 ml Output Total 3000 ml 1900 ml 49721 ml Balance -795 ml -300 ml 2506 ml Intake Oral 953 ml 650 ml 7275 ml IV Total 1252 ml 950 ml 96240 ml Tube Irrigant 20 ml Output Urine Total 3000 ml 1900 ml 67280 ml # Bowel Movements 1 9 Exam General: Patient is lying supine in bed and is in no apparent distress. She continues to be more awake and alert and responsive. Skin: Rash on back has improved with adding extra sheet to the bed. HEENT: Head is atraumatic normocephalic. Eyes: Pupils are equally round and reactive to light and accommodation. Extraocular muscles are intact. Sclera are white anicteric. Subconjunctival mucosa is pink. Ears and nose are unremarkable. Oropharynx: There is no mucosal lesions, there is no thrush, there is no pharyngitis. Neck: Is supple, there are no nodes, or masses or tenderness. Chest: The breath sounds are clearer to auscultation again today. There are a few bibasilar crackles still. There is minimal wheezing. There are no rhonchi or rubs. Heart: Rate, rhythm is regular. There is no new murmur, rub or gallop. Abdomen: Good bowel sounds are present. Abdomen is soft, nontender, no organomegaly or masses were appreciated. Extremities: Are symmetrical and well perfused. There is no edema, there is no cellulitis, no rash. Neurologic: There are no focal neurological deficits. Cranial nerves II through XII are intact except there is decreased hearing evident bilaterally. However, her hearing appears to have improved today. There are no sensory or motor deficits. Psychiatric: Patients mood is calm and shows no sign of agitation. Genital: Deferred Rectal: Deferred Lab and Diagnostics Result Diagram: 09/06/16 0550 09/06/1650 Microbiology Strep pneumo Ag negative Name: BANDARDERIK Kirk Age/Sex: 66/F Attend Dr: Ron West MD Acct: [id number] Unit: [id number] Status: ADM IN Location: [facility] – [place] 3012-1 Re08/31/16 Disch: Specimen: [id number] Collected: 08/31/16 Status: COMP Req#: [id number] Received: 08/31/16 Source: URINE CC Sp Desc : ANGELITA Avalos Dr: Will Palumbo MD Ordered: URINE CULT Procedure Result Verified Site Microbiology REINIER CULT URINE Final 09/02/16 Organism 1 ESCHERICHIA COLI U COLONY COUNT/QUANTITY >100,000 CFU/ml Cefazolin-predicts results for the oral agents, cefaclor,cefdinir, cefpodoximen, cefprozil, cefuroximne axetil, cephalexin and loracarbed when used for therapy of uncomplicated UTI's due to E. coli, K. pneumoniae, and Proteus mirabilis. Cefpodoxime, cefdinir and cefuroxime axetil may be tested individually because some isolates may be susceptible to these agents while testing resistant to cefazolin. (CLSI L722-J58 pg 53) 1. ESCHERICHIA COLI M.I.C Interp --------- ------ * AMOXICILLIN/CLAVULATE 16 I * AMPICILLIN >=32 R * CEFAZOLIN (CEPHALOSPORIN) UTI 16 S * CEFEPIME <=1 S * CEFTRIAXONE <=1 S * CEFUROXIME SODIUM 16 I * CIPROFLOXACIN <=0.25 S * ERTAPENEM <=0.5 S * GENTAMICIN <=1 S * IMIPENEM <=1 S * LEVOFLOXACIN <=0.12 S * NITROFURANTOIN <=16 S * TETRACYCLINE <=1 S * TOBRAMYCIN <=1 S * TRIMETHOPRIM/SULFAMETHOXAZOLE <=20 S X-Rays, CTs and MRIs PROCEDURE: X-RAY CHEST ONE VIEW, PORTABLE ([id number]) IMPRESSION: Bibasilar lung opacities suspicious for aspiration versus pneumonia. Dictated by: Lucia Betancourt MD, PhD on 08/31/2016 at 11:23 PROCEDURE: X-RAY CHEST, TWO VIEWS ([id number]) INDICATIONS: Follow up for pneumonia TECHNIQUE: 2 views of the chest were acquired. COMPARISON: [facility], CR, XR CHEST 1VW (PORTABLE), 08/31/2016, 10: 45. [facility], CR, CHEST 2VW, 11/14/2013, 11:05. FINDINGS: Surgical changes and devices: None. Lungs and pleura: No pleural effusions or pneumothorax. Patchy air space opacities noted in the posterior aspect lung bases bilaterally suspicious for pneumonia. Mediastinum: Mediastinal contours are normal. Heart size is normal. Bones and chest wall: No suspicious bony abnormalities. Soft tissues appear unremarkable. IMPRESSION: Bibasilar pneumonia not significantly changed compared to prior study obtained 08/31/16. Recommend followup imaging to resolution of the bibasilar opacities to exclude ng neoplastic process. Dictated by: Lucia Betancourt MD, PhD on 09/02/2016 at 9:41 Approved by: Lucia Betancourt MD, PhD on 09/02/2016 at 9:41 PROCEDURE: CT SINUSES ([id number]) INDICATIONS: sinusitis and extreme hi wbc TECHNIQUE: Noncontrast 3.0 mm axial images acquired from the frontal sinuses to the mid- sella, with coronal and sagittal reformats. COMPARISON: None. FINDINGS: Image quality: Excellent. Maxillary Sinuses: No bony remodeling or destruction. Sinuses are clear. Ethmoid Air Cells: No bony remodeling or destruction. Sinuses are mildly abnormal with mucosal thickening involving the anterior ethmoid air cells bilaterally, right slightly greater than left.. Sphenoid Sinuses: No bony remodeling or destruction. Sinuses are clear. Frontal Sinuses: No bony remodeling or destruction. Sinuses are clear. Ostiomeatal Complexes: Ostiomeatal complexes are patent. No Deandra cells. IMPRESSION: Anterior ethmoid air cell mild mucosal thickening, likely chronic, right slightly greater than left in overall mild in severity. Dictated by: Darius Griffin M.D. on 09/04/2016 at 18:50 Approved by: Darius Griffin M.D. on 09/04/2016 at 18:50 PROCEDURE: CT CHEST WITH CONTRAST ([id number]) INDICATIONS: Pneumonia with increasing WBC TECHNIQUE: After the administration of intravenous contrast, 5 mm thick sections acquired from the pulmonary apices to the posterior costophrenic angles. 7 mm thick coronal and sagittal MIP reformats were acquired. For radiation dose reduction , the following was used: automated exposure control, adjustment of mA and/or kV according to patient size. COMPARISON: [facility], CR, XR CHEST 2VW, 09/02/2016, 9:25. FINDINGS: Image quality: Excellent. Lungs and pleura: There is improving acute air space opacities with reference to the prior plain film from 2 days ago, and with no new area of alveolar infiltration. Very small bilateral pleural effusions are present, but no pneumothorax. Central and peripheral airways are patent and normal in caliber. Mediastinum: Heart size is normal. No pericardial effusion. No mediastinal or hilar adenopathy by size criteria. Thoracic aorta and central pulmonary arteries are normal in size. Esophagus is normal in caliber. No hiatal hernia. Bones and chest wall: No suspicious bony lesions. No vertebral body compression fractures. No axillary or supraclavicular adenopathy by size criteria. Thyroid gland appears normal where well visualized but is diminutive on the left and not visualized as a discrete structure on the right. Abdomen: Visualized upper abdominal solid organs appear normal. Upper abdominal bowel loops are normal in caliber. IMPRESSION: Slight improvement in bibasilar moderately severe pneumonia. Slight pleural effusions, without evidence of empyema formation. The left thyroid lobe is diminutive, the right thyroid lobe is essentially absent. Please correlate clinically for whether prior thyroidectomy on the right has been performed. Dictated by: Darius Griffin M.D. on 09/04/2016 at 18:16 Approved by: Darius Griffin M.D. on 09/04/2016 at 18:16 Assessment & Plan This is a 66 year old woman with past medical history significant for hypertension, iatrogenic hypothyroidism, and seasonal allergies with inhaler use PRN who presented to the ED via EMS from urgent care due to shortness of breath and productive cough for the last 3 weeks. acute, active # Severe sepsis, present on admission, SIRS+HR 120 RR 22 WBC 16.6 with O2 sat 80 % on RA, source: pneumonia and Escherichia coli urinary tract infection with babsilar opacities on CXR, UTI secondary to.Escherichia coli, strep Ag/viral PCR neg, -Patient is clinically improving with antibiotics, will continue Ceftriaxone and Azithromycin. -However, her white blood cell has improved again today. I suspect this is due to the white blood cell count lagging behind the patient's clinical response and it appears to have peaked on 09/04/2015. Also, elevation of white blood cell count could be due to steroid use. -The prednisone was stopped 09/01/2016 -O2 supplement as needed, target>95%, should be weaned off with clinical improvement. However, patient still remains on 4 L per nasal cannula. She is on no oxygen at home. -Repeat chest x-ray shows bibasilar infiltrates unchanged since admission. However, patient is clinically improved. Chest x-ray also may be lagging behind medical improvement. # Urinary tract infection with Escherichia coli present at the time of admission -Continue Rocephin -Continue IV fluids # Decreased hearing -Could be due to acute viral illness after her trip to [place] to visit her grandchildren who are all sick with a viral illness. Her symptoms are improved after taking Zyrtec last evening. -Could be do to a side effect from the azithromycin. -We will continue Zyrtec. # Elevated white blood cell count -I have consulted Dr. Sheehan of infectious disease and he was so kind to see the patient in consultation. His recommendations are as follows: "1. I would continue with ceftriaxone and azithromycin until the patient has clearly improved. 2. If her hearing loss continues, one can simply discontinue the azithromycin as she has already received three or four days of this and continue with the ceftriaxone alone. 3. I would probably continue the ceftriaxone for a total of 5-7 days, but if the patient was much improved, discharge on oral antibiotics to finish a 7-10 day course might be reasonable. 4. I agree completely with Dr. Marques's plan to do a chest CT and better delineate her pulmonary infiltrates. To this I would add a CT scan of the sinuses as she is complaining of some sinus pain and pressure. 5. Will continue to follow this patient. Will see her on Wednesday if she remains in the hospital." chronic, stable # Hypertension, present on admission, continue lisinopril # Hypothyroidism 2/2 partial thyroidectomy, present on admission, continue home levothyroxine. Check TSH. Continue general diet Disposition: As patient's white blood cell count is still elevated, and the patient appears to be just turning the corner and recovery from her sepsis episode, pneumonia and urinary tract infection' I suspect the patient will be here at least another 48 hours. Pain Evaluation: Adequate Pain Control GI Prophylaxis: Proton Pump Inhibitor VTE Prophylaxis: Sub-Q Enoxaparin VTE Mechanical Devices: Venous Foot Pump Resuscitation Status: CPR: Attempt Resuscitation Satya Marques MD Sep 06, 2016 22:41
[2016-09-07 06:17] VITALS: BP 130/81; PULSE 97; RESP 16; O2SAT 90
[2016-09-07 06:26] LABS: Mean Corpuscular Volume 89.7 fL (81-100); Platelet Count 541 bil/L (150-400)
[2016-09-07 06:46] LABS: Magnesium 2.2 mg/dL (1.6-2.6)
[2016-09-07] MEDS: Pantoprazole 40 mg ER24 Tablet PO SCH (07:31)
[2016-09-07] MEDS: guaiFENesin DM 200-20 mg/10 mL Syrup PO PRN ×3 (07:31→22:24)
[2016-09-07] MEDS: Ascorbic Acid 500 mg Tablet PO SCH (07:31)
[2016-09-07] MEDS: cefTRIAXone Inj 1,000 MG in IV Premix 1 EACH IV SCH ×2 (07:31→20:55)
[2016-09-07] MEDS: Potassium Chloride 20 mEq SR Tablet PO SCH (07:32)
[2016-09-07 08:08] VITALS: PULSE 95; O2SAT 92
[2016-09-07] MEDS: 0.9% NaCl + KCl 20 mEq/L 1,000 ML IV SCH ×2 (09:00→20:55)
[2016-09-07 09:17] LABS: BASOPHILS % (AUTO) 0 % (0-3); EOSINOPHILS % (AUTO) 2 % (0-5); MONOCYTES % (AUTO) 10 % (4-12); NEUTROPHILS % (AUTO) 70 % (40-74)
--- NOTE | 2016-09-07 10:21 | DRSVH ---
PROCEDURE: X-RAY CHEST, TWO VIEWS ([id number]) INDICATIONS: Follow up for Pneumonia TECHNIQUE: 2 views of the chest were acquired. COMPARISON: [facility], CT, CT CHEST W CON, 09/04/2016, 17:28. [facility], C R, XR CHEST 2VW, 09/02/2016, 9:25. FINDINGS: Surgical changes and devices: None. Lungs and pleura: No pleural effusions or pneumothorax. Worsening consolidation in the lung bases, m ildly increased in the right lower lobe since 09/02/16. Mediastinum: Mediastinal contours are normal. Heart size is normal. Bones and chest wall: No suspicious bony abnormalities. Soft tissues appear unremarkable. IMPRESSION: Worsening right lower lobe consolidation since 09/02/16. Additional left basilar consolidation unchang ed. Recommend clinical correlation and continued radiographic followup to document resolution and exc lude underlying pulmonary nodule. Dictated by: Morro Jarrett M.D. on 09/07/2016 at 10:19 Approved by: Morro Jarrett M.D. on 09/07/2016 at 10:19
[2016-09-07] MEDS: Azithromycin Inj 500 MG in Dextrose 5% w/Vial Mate 250 ML IV SCH (10:48)
[2016-09-07 12:43] VITALS: BP 112/72; PULSE 93; RESP 16; O2SAT 93
--- NOTE | 2016-09-07 14:03 | NUR ---
Respiratory Patient continues to have intermittent dry coughing. patient was administered PRN cough syrup. Patient states hearing has improved. Patient denied pain this morning. Patient took shower and is feeling significantly better. Patient is on RA with saturations at 93%.
--- NOTE | 2016-09-07 14:56 | PROG NOTE ---
[address] [address] PROGRESS NOTE PATIENT: DERIK PORTILLO : 1950 MR#: [id number] ADMIT: 08/31/2016 JOB ID: [id number] DATE: 09/07/2016 INFECTIOUS DISEASE FOLLOWUP: REASON FOR FOLLOW UP: Bacterial superinfection following viral URI. INTERVAL HISTORY: Over the weekend, the patient has improved dramatically. During the weekend, there were concerns that she was still remaining on relatively high-flow oxygen, but just overnight, the patient has improved substantially and now is saturating well without any oxygen. She reports she is improving almost hour by hour at this point. She denies significant fevers, chills or sweats. Her cough has decreased and she is no longer short of breath. PHYSICAL EXAMINATION: Reveals an afebrile woman. She has been afebrile since September 02, so now a total of five days. Current temp of 36.8, pulse 95, respiratory rate 16, blood pressure 130/81, saturating 92% on room air. The oral cavity negative. Lungs relatively clear posteriorly with a few crackles heard at the left base. Cardiac tones without change. Abdomen benign. Skin without rash. LABORATORIES: Include a white count which has dropped from a max of 23,000 down to 12,000. The diff on the white count is notable for 5% myelocytes which is interesting in that she still has a considerable left shift. Her sed rate also continues to be greater than 140, but her procalcitonin has declined from an impressive 6.5, down to 0.22. LFTs are normal. Urinalysis had modest pyuria when she came in, and the urine grew E. coli. MRSA screen negative. Pneumococcal urine antigen negative, Legionella urine antigen negative. Respiratory viral PCR studies are negative and blood cultures negative. A repeat chest x-ray was done this morning. Shows possible worsening right lower lobe consolidation as opposed to five days ago. IMPRESSION: This patient is much improved clinically over what we saw three days ago, when I last saw the patient. Her procalcitonin has fallen basically down into a normal range with treatment for community-acquired pneumonia and her white blood count has also declined to near-normal levels. The only concerns I have here is the presence of 5% myelocytes which would be unusual considering her great improvement and her very high sed rate of 140. Sed rate is not a great test in the setting of pneumonia but levels this high have a fairly limited differential diagnosis, though this is somewhat controversial in the literature and does raise some concerns about possible underlying process. RECOMMENDATIONS: 1. I would continue with azithromycin and ceftriaxone perhaps through today, but I think the patient is really close to a point where she could be discharged. Note that she has now received basically a week's worth of both these medications, so I think stopping the azithromycin and ceftriaxone at any point here would be reasonable. 2. Once the patient is discharged, she should follow up with her primary care doctor and, among other things, have a repeat chest x-ray, perhaps in a week or so, to make sure it is starting to improve. I suspect the worsening in her chest x-ray is just because of the fact that chest x-rays often lag behind clinical improvement. Will need to make certain that is the case. 3. Her outpatient physician will need to follow her ESR as if it remains very high and if it continues greater than 100, additional diagnostic studies will likely be needed. Thank you very much.
--- NOTE | 2016-09-07 15:37 | NUR ---
Discharge Patient given discharge orders. Patient given medication list and explained when next dose due verbally and in writing. Patient explained prescriptions were faxed to pharmacy. Patient IV removed fully intact and asymptomatic. Patient left with all personal belongings. Patient was offered wheelchair to main entrance, but refused.
[2016-09-07 15:59] VITALS: BP 118/77; PULSE 97; RESP 16; O2SAT 95
[2016-09-07 20:23] VITALS: BP 110/70; PULSE 103; RESP 16; O2SAT 94
--- NOTE | 2016-09-07 23:46 | PCM.PNMED ---
Subjective Date of Service Sep 07, 2016 Subjective Is feeling much better today and was able ambulate in hallway without oxygen. She has continued cough and now has some left-sided flank pain when coughing or taking a deep breath. Exam Vital Signs Vital Sign - Last Date Time Temp Pulse Resp B/P Pulse Ox O2 Delivery O2 Flow Rate FiO2 09/07/16 20:23 36.7 103 16 110/70 94 Room Air 09/06/16 13:57 3.00 Intake and Output 09/06/16 09/06/16 09/07/16 Cumulative From/Thru 15:00 23:00 07:00 08/31/16 10:27 - 09/06/16 18:28 Intake Total 2541 ml 78496 ml Output Total 1450 ml 18635 ml Balance 1091 ml 3597 ml Intake Oral 1400 ml 8675 ml IV Total 1141 ml 46344 ml Tube Irrigant 20 ml Output Urine Total 1450 ml 10514 ml # Bowel Movements 1 10 Exam General: Patient is lying supine in bed and is in no apparent distress. She continues to be more awake and alert and responsive. Skin: Rash on back has improved with adding extra sheet to the bed. HEENT: Head is atraumatic normocephalic. Eyes: Pupils are equally round and reactive to light and accommodation. Extraocular muscles are intact. Sclera are white anicteric. Subconjunctival mucosa is pink. Ears and nose are unremarkable. Oropharynx: There is no mucosal lesions, there is no thrush, there is no pharyngitis. Neck: Is supple, there are no nodes, or masses or tenderness. Chest: The lungs are clear again today. There are a few bibasilar crackles still, however improved. There is minimal wheezing. There are no rhonchi or rubs. There is an area of tenderness the left flank just under the left 12th rib in the posterior axillary line area Heart: Rate, rhythm is regular. There is no new murmur, rub or gallop. Abdomen: Good bowel sounds are present. Abdomen is soft, nontender, no organomegaly or masses were appreciated. Extremities: Are symmetrical and well perfused. There is no edema, there is no cellulitis, no rash. Neurologic: There are no focal neurological deficits. Cranial nerves II through XII are intact except there is decreased hearing evident bilaterally. However, her hearing appears to have improved today. There are no sensory or motor deficits. Psychiatric: Patients mood is calm and shows no sign of agitation. Genital: Deferred Rectal: Deferred Lab and Diagnostics Result Diagram: 09/07/16 0553 09/07/1653 Microbiology Strep pneumo Ag negative Name: DERIK PORTILLO Kirk Age/Sex: 66/F Attend Dr: Ron West MD Acct: [id number] Unit: [id number] Status: ADM IN Location: [facility] 3012-1 Re08/31/16 Disch: Specimen: [id number] Collected: 08/31/16 Status: COMP Req#: [id number] Received: 08/31/16 Source: URINE CC Sp Desc : ANGELITA Avalos Dr: Will Palumbo MD Ordered: URINE CULT Procedure Result Verified Site Microbiology ERINIER CULT URINE Final 09/02/16-0803 Organism 1 ESCHERICHIA COLI U COLONY COUNT/QUANTITY >100,000 CFU/ml Cefazolin-predicts results for the oral agents, cefaclor,cefdinir, cefpodoximen, cefprozil, cefuroximne axetil, cephalexin and loracarbed when used for therapy of uncomplicated UTI's due to E. coli, K. pneumoniae, and Proteus mirabilis. Cefpodoxime, cefdinir and cefuroxime axetil may be tested individually because some isolates may be susceptible to these agents while testing resistant to cefazolin. (CLSI L306-N21 pg 53) 1. ESCHERICHIA COLI M.I.C Interp --------- ------ * AMOXICILLIN/CLAVULATE 16 I * AMPICILLIN >=32 R * CEFAZOLIN (CEPHALOSPORIN) UTI 16 S * CEFEPIME <=1 S * CEFTRIAXONE <=1 S * CEFUROXIME SODIUM 16 I * CIPROFLOXACIN <=0.25 S * ERTAPENEM <=0.5 S * GENTAMICIN <=1 S * IMIPENEM <=1 S * LEVOFLOXACIN <=0.12 S * NITROFURANTOIN <=16 S * TETRACYCLINE <=1 S * TOBRAMYCIN <=1 S * TRIMETHOPRIM/SULFAMETHOXAZOLE <=20 S X-Rays, CTs and MRIs PROCEDURE: X-RAY CHEST ONE VIEW, PORTABLE ([id number]) IMPRESSION: Bibasilar lung opacities suspicious for aspiration versus pneumonia. Dictated by: Lucia Betancourt MD, PhD on 08/31/2016 at 11:23 PROCEDURE: X-RAY CHEST, TWO VIEWS ([id number]) INDICATIONS: Follow up for pneumonia TECHNIQUE: 2 views of the chest were acquired. COMPARISON: [facility], CR, XR CHEST 1VW (PORTABLE), 08/31/2016, 10: 45. [facility], CR, CHEST 2VW, 11/14/2013, 11:05. FINDINGS: Surgical changes and devices: None. Lungs and pleura: No pleural effusions or pneumothorax. Patchy air space opacities noted in the posterior aspect lung bases bilaterally suspicious for pneumonia. Mediastinum: Mediastinal contours are normal. Heart size is normal. Bones and chest wall: No suspicious bony abnormalities. Soft tissues appear unremarkable. IMPRESSION: Bibasilar pneumonia not significantly changed compared to prior study obtained 08/31/16. Recommend followup imaging to resolution of the bibasilar opacities to exclude ng neoplastic process. Dictated by: Lucia Betancourt MD, PhD on 09/02/2016 at 9:41 Approved by: Lucia Betancourt MD, PhD on 09/02/2016 at 9:41 PROCEDURE: CT SINUSES ([id number]) INDICATIONS: sinusitis and extreme hi wbc TECHNIQUE: Noncontrast 3.0 mm axial images acquired from the frontal sinuses to the mid- sella, with coronal and sagittal reformats. COMPARISON: None. FINDINGS: Image quality: Excellent. Maxillary Sinuses: No bony remodeling or destruction. Sinuses are clear. Ethmoid Air Cells: No bony remodeling or destruction. Sinuses are mildly abnormal with mucosal thickening involving the anterior ethmoid air cells bilaterally, right slightly greater than left.. Sphenoid Sinuses: No bony remodeling or destruction. Sinuses are clear. Frontal Sinuses: No bony remodeling or destruction. Sinuses are clear. Ostiomeatal Complexes: Ostiomeatal complexes are patent. No Deandra cells. IMPRESSION: Anterior ethmoid air cell mild mucosal thickening, likely chronic, right slightly greater than left in overall mild in severity. Dictated by: Darius Griffin M.D. on 09/04/2016 at 18:50 Approved by: Darius Griffin M.D. on 09/04/2016 at 18:50 PROCEDURE: CT CHEST WITH CONTRAST ([id number]) INDICATIONS: Pneumonia with increasing WBC TECHNIQUE: After the administration of intravenous contrast, 5 mm thick sections acquired from the pulmonary apices to the posterior costophrenic angles. 7 mm thick coronal and sagittal MIP reformats were acquired. For radiation dose reduction , the following was used: automated exposure control, adjustment of mA and/or kV according to patient size. COMPARISON: [facility], CR, XR CHEST 2VW, 09/02/2016, 9:25. FINDINGS: Image quality: Excellent. Lungs and pleura: There is improving acute air space opacities with reference to the prior plain film from 2 days ago, and with no new area of alveolar infiltration. Very small bilateral pleural effusions are present, but no pneumothorax. Central and peripheral airways are patent and normal in caliber. Mediastinum: Heart size is normal. No pericardial effusion. No mediastinal or hilar adenopathy by size criteria. Thoracic aorta and central pulmonary arteries are normal in size. Esophagus is normal in caliber. No hiatal hernia. Bones and chest wall: No suspicious bony lesions. No vertebral body compression fractures. No axillary or supraclavicular adenopathy by size criteria. Thyroid gland appears normal where well visualized but is diminutive on the left and not visualized as a discrete structure on the right. Abdomen: Visualized upper abdominal solid organs appear normal. Upper abdominal bowel loops are normal in caliber. IMPRESSION: Slight improvement in bibasilar moderately severe pneumonia. Slight pleural effusions, without evidence of empyema formation. The left thyroid lobe is diminutive, the right thyroid lobe is essentially absent. Please correlate clinically for whether prior thyroidectomy on the right has been performed. Dictated by: Darius Griffin M.D. on 09/04/2016 at 18:16 Approved by: Darius Griffin M.D. on 09/04/2016 at 18:16 Assessment & Plan This is a 66 year old woman with past medical history significant for hypertension, iatrogenic hypothyroidism, and seasonal allergies with inhaler use PRN who presented to the ED via EMS from urgent care due to shortness of breath and productive cough for the last 3 weeks. acute, active # Severe sepsis, present on admission, SIRS+HR 120 RR 22 WBC 16.6 with O2 sat 80 % on RA, source: pneumonia and Escherichia coli urinary tract infection with babsilar opacities on CXR, UTI secondary to.Escherichia coli, strep Ag/viral PCR neg, -Patient is clinically improving with antibiotics, will continue Ceftriaxone and Azithromycin. -However, her white blood cell has improved again today. I suspect this is due to the white blood cell count lagging behind the patient's clinical response and it appears to have peaked on 09/04/2015. Also, elevation of white blood cell count could be due to steroid use. -The prednisone was stopped 09/01/2016 -O2 supplement as needed, target>95%, should be weaned off with clinical improvement. However, patient still remains on 4 L per nasal cannula. She is on no oxygen at home. -Repeat chest x-ray shows bibasilar infiltrates unchanged since admission. However, patient is clinically improved. Chest x-ray also may be lagging behind medical improvement. # Urinary tract infection with Escherichia coli present at the time of admission -Continue Rocephin -Continue IV fluids # Decreased hearing -Could be due to acute viral illness after her trip to [place] to visit her grandchildren who are all sick with a viral illness. Her symptoms are improved after taking Zyrtec last evening. -Could be do to a side effect from the azithromycin. -We will continue Zyrtec. # Elevated white blood cell count -I have consulted Dr. Sheehan of infectious disease and he was so kind to see the patient in consultation. His recommendations are as follows: "1. I would continue with azithromycin and ceftriaxone perhaps through today, but I think the patient is really close to a point where she could be discharged. Note that she has now received basically a week's worth of both these medications, so I think stopping the azithromycin and ceftriaxone at any point here would be reasonable. 2. Once the patient is discharged, she should follow up with her primary care doctor and, among other things, have a repeat chest x-ray, perhaps in a week or so, to make sure it is starting to improve. I suspect the worsening in her chest x-ray is just because of the fact that chest x-rays often lag behind clinical improvement. Will need to make certain that is the case. 3. Her outpatient physician will need to follow her ESR as if it remains very high and if it continues greater than 100, additional diagnostic studies will likely be needed." chronic, stable # Hypertension, present on admission, continue lisinopril # Hypothyroidism 2/2 partial thyroidectomy, present on admission, continue home levothyroxine. Check TSH. Continue general diet Disposition: Patient continues to improve likely discharge home on oral antibiotics in a.m. Pain Evaluation: Adequate Pain Control GI Prophylaxis: Proton Pump Inhibitor VTE Prophylaxis: Sub-Q Enoxaparin VTE Mechanical Devices: Venous Foot Pump Resuscitation Status: CPR: Attempt Resuscitation Satya Marques MD Sep 07, 2016 23:46
[2016-09-08 05:33] VITALS: BP 136/81; PULSE 94; RESP 18; O2SAT 89
--- NOTE | 2016-09-08 05:42 | NUR ---
NOC activity Pt still having a very mild sob. States that it happens only when she's coughing vigorously. Administered PRN cough medication and no complains after. Pt has been running on ra but has been saturating around 89%. Provide o2 on 1LPM for comfort. Pt has slept most of the night.
[2016-09-08 05:55] LABS: Mean Corpuscular Hemoglobin 29.7 pg (27.0-35.0); Mean Corpuscular Volume 90.2 fL (81-100); Platelet Count 608 bil/L (150-400)
[2016-09-08] MEDS: guaiFENesin DM 200-20 mg/10 mL Syrup PO PRN (06:02)
[2016-09-08 06:22] LABS: BASOPHILS % (AUTO) 2 % (0-3); EOSINOPHILS % (AUTO) 0 % (0-5); MONOCYTES % (AUTO) 8 % (4-12); NEUTROPHILS % (AUTO) 66 % (40-74)
[2016-09-08] MEDS: cefTRIAXone Inj 1,000 MG in IV Premix 1 EACH IV SCH (07:55)
[2016-09-08] MEDS: Pantoprazole 40 mg ER24 Tablet PO SCH (07:56)
[2016-09-08] MEDS: Ascorbic Acid 500 mg Tablet PO SCH (07:56)
[2016-09-08] MEDS: Potassium Chloride 20 mEq SR Tablet PO SCH (07:56)
[2016-09-08 08:52] VITALS: PULSE 103; O2SAT 94
[2016-09-08] MEDS: Azithromycin Inj 500 MG in Dextrose 5% w/Vial Mate 250 ML IV SCH (11:16)
[2016-09-08] MEDS: 0.9% NaCl + KCl 20 mEq/L 1,000 ML IV SCH (12:25)
[2016-09-08 12:39] VITALS: BP 103/68; PULSE 97; RESP 19; O2SAT 95
--- NOTE | 2016-09-08 14:06 | PROG NOTE ---
[address] [address] PROGRESS NOTE PATIENT: DERIK PORTILLO : 1950 MR#: [id number] ADMIT: 08/31/2016 JOB ID: [id number] DATE: 09/08/2016 INFECTIOUS DISEASE FOLLOW UP NOTE: REASON FOR FOLLOW UP: Bacterial superinfection following upper respiratory tract infection. INTERVAL HISTORY: The patient reports her breathing continues to improve and at this point, she is not at all short of breath. She denies any pleuritic chest pain, significant cough, shortness of breath or other issue. No fevers, no chills. No sweats. No sore throat. She does have a bit of pain in her lower back when she coughs which is now becoming very infrequent as it is strictly a limited dry cough. PHYSICAL EXAMINATION: Reveals an afebrile woman, in no acute distress. Temperature 36.3, pulse 97, respiratory rate 19, blood pressure 103/68, saturating 95% on room air. Examination of the head is unremarkable. The oral cavity likewise negative. Lungs with essentially clear breath sounds, perhaps decrease in terms of lung volume but really nothing in the way of adventitial sounds except for maybe a few crackles at the right base. Abdomen benign. No skin rash. LABORATORIES: Include a white count of 10,900, normal differential except there are still 2% myelocytes and 1% metamyelocytes, which continues to trend seen since admission. Her creatinine is 0.51. LFTs normal except for an ALT slightly up at 41. Albumin 2.6. Procalcitonin 0.22. No significant positive cultures. She did have the urine culture which grew E. coli. A chest x-ray done this morning is yet to be interpreted. The one done yesterday showed some continued consolidation in the bases. IMPRESSION: This patient seems to have done extremely well over the past couple days. Her procalcitonin has fallen to normal levels from an elevated level previously. Her myelocytes seem to be decreasing as well though it is a little odd still to have myelocytes in the peripheral smear and such a high sed rate. Overall clinically the patient seems ready for discharge. RECOMMENDATIONS: 1. I would discontinue both the azithromycin and ceftriaxone today as the patient has had a very prolonged almost nine day course of antibiotics for this bacterial superinfection of what was probably a viral URI. 2. I think the patient could be discharged on clinical grounds. I note that another chest x-ray has been done apparently to compare to the one done yesterday, but unless it shows something dramatic I really think this patient is ready to leave at this point. 3. She will need to followup with her outpatient physician to recheck that sed rate, and the differential white blood count as they both are little bit anomalous for her overall clinical course. 4. ID will go ahead and sign off at this time.
--- NOTE | 2016-09-08 15:18 | DRSVH ---
PROCEDURE: X-RAY CHEST, TWO VIEWS ([id number]) INDICATIONS: Follow up for Pneumonia TECHNIQUE: 2 views of the chest were acquired. COMPARISON: [facility], CR, XR CHEST 2VW, 09/07/2016, 9:08. FINDINGS: Surgical changes and devices: None. Lungs and pleura: Persistent basilar consolidation redemonstrated not significantly changed. Lungs o therwise are clear. Mediastinum: Mediastinal contours are normal. Heart size is normal. Bones and chest wall: No suspicious bony abnormalities. Soft tissues appear unremarkable. IMPRESSION: Aside from technique differences, persistent basilar consolidation with no appreciable ch destini. Dictated by: Husam SNEED Interpreted: Deirdre Flores MD on 09/08/2016 at 15:18 Transcribed by: AMY on 09/08/2016 at 15:18 Approved by: Deirdre Flores M.D. on 09/08/2016 at 16:24
--- NOTE | 2016-09-08 16:10 | PCM.DIMED ---
Discharge Instructions Date of Service Sep 08, 2016 Dates of Hospitalization Aug 31, 2016 at 14:03 Discharge Diagnosis Discharge Diagnosis Bilateral Pneumonia with Respiratory Failure and E. coli UTI Diet Heart Healthy Activity No restrictions (May return to usual activities gradually as tolerated) Call your provider Fever or Chills, Shortness of breath, Bleeding, Chest pain, Vomitting, Excessive diarrhea, Weakness (unilateral), Other Patient Instructions Follow-up Provider: Charlotte Llamas MD Follow-up with PCP in: 1 week Provider: Mark Anthony Sheehan MD Follow-up in: 4 weeks (For Infectious Disease Follow Up) Satya Marques MD Sep 08, 2016 16:10
[2016-09-08] MEDS ORDERED: CEFD300C3 PO (16:15)
[2016-09-08] MEDS ORDERED: Guaifenesin/D-Methorphan Hb PO (16:15)
[2016-09-08] MEDS ORDERED: SENN-133 PO (16:15)
--- NOTE | 2016-09-08 17:34 | NUR ---
Discharge Pt discharged home with sister via private vehicle. Pt verbalized understanding of discharge and Rx instructions, personal belongings accounted for and left with pt.
--- NOTE | 2016-09-09 01:08 | PCM.DC.MED ---
Discharge Summary Date of Service Sep 08, 2016 Dates of Hospitalization Date of Hospital Admission Aug 31, 2016 at 14:03 Date of Discharge: Sep 08, 2016 Providers: Admitting Physician: Ron West MD Primary Care Physician: Charlotte Llamas MD Attending Physician: Ron West MD Diagnosis at Time of Discharge Diagnosis at Time of Discharge Bilateral Pneumonia with Respiratory Failure and E. coli UTI Procedures XRay, CTs & MRIs PROCEDURE: X-RAY CHEST ONE VIEW, PORTABLE ([id number]) IMPRESSION: Bibasilar lung opacities suspicious for aspiration versus pneumonia. Dictated by: Lucia Betancourt MD, PhD on 08/31/2016 at 11:23 PROCEDURE: X-RAY CHEST, TWO VIEWS ([id number]) INDICATIONS: Follow up for pneumonia TECHNIQUE: 2 views of the chest were acquired. COMPARISON: [facility], CR, XR CHEST 1VW (PORTABLE), 08/31/2016, 10: 45. [facility], CR, CHEST 2VW, 11/14/2013, 11:05. FINDINGS: Surgical changes and devices: None. Lungs and pleura: No pleural effusions or pneumothorax. Patchy air space opacities noted in the posterior aspect lung bases bilaterally suspicious for pneumonia. Mediastinum: Mediastinal contours are normal. Heart size is normal. Bones and chest wall: No suspicious bony abnormalities. Soft tissues appear unremarkable. IMPRESSION: Bibasilar pneumonia not significantly changed compared to prior study obtained 08/31/16. Recommend followup imaging to resolution of the bibasilar opacities to exclude ng neoplastic process. Dictated by: Lucia Betancourt MD, PhD on 09/02/2016 at 9:41 Approved by: Lucia Betancourt MD, PhD on 09/02/2016 at 9:41 PROCEDURE: CT SINUSES ([id number]) INDICATIONS: sinusitis and extreme hi wbc TECHNIQUE: Noncontrast 3.0 mm axial images acquired from the frontal sinuses to the mid- sella, with coronal and sagittal reformats. COMPARISON: None. FINDINGS: Image quality: Excellent. Maxillary Sinuses: No bony remodeling or destruction. Sinuses are clear. Ethmoid Air Cells: No bony remodeling or destruction. Sinuses are mildly abnormal with mucosal thickening involving the anterior ethmoid air cells bilaterally, right slightly greater than left.. Sphenoid Sinuses: No bony remodeling or destruction. Sinuses are clear. Frontal Sinuses: No bony remodeling or destruction. Sinuses are clear. Ostiomeatal Complexes: Ostiomeatal complexes are patent. No Deandra cells. IMPRESSION: Anterior ethmoid air cell mild mucosal thickening, likely chronic, right slightly greater than left in overall mild in severity. Dictated by: Darius Griffin M.D. on 09/04/2016 at 18:50 Approved by: Darius Griffin M.D. on 09/04/2016 at 18:50 PROCEDURE: CT CHEST WITH CONTRAST ([id number]) INDICATIONS: Pneumonia with increasing WBC TECHNIQUE: After the administration of intravenous contrast, 5 mm thick sections acquired from the pulmonary apices to the posterior costophrenic angles. 7 mm thick coronal and sagittal MIP reformats were acquired. For radiation dose reduction , the following was used: automated exposure control, adjustment of mA and/or kV according to patient size. COMPARISON: [facility], CR, XR CHEST 2VW, 09/02/2016, 9:25. FINDINGS: Image quality: Excellent. Lungs and pleura: There is improving acute air space opacities with reference to the prior plain film from 2 days ago, and with no new area of alveolar infiltration. Very small bilateral pleural effusions are present, but no pneumothorax. Central and peripheral airways are patent and normal in caliber. Mediastinum: Heart size is normal. No pericardial effusion. No mediastinal or hilar adenopathy by size criteria. Thoracic aorta and central pulmonary arteries are normal in size. Esophagus is normal in caliber. No hiatal hernia. Bones and chest wall: No suspicious bony lesions. No vertebral body compression fractures. No axillary or supraclavicular adenopathy by size criteria. Thyroid gland appears normal where well visualized but is diminutive on the left and not visualized as a discrete structure on the right. Abdomen: Visualized upper abdominal solid organs appear normal. Upper abdominal bowel loops are normal in caliber. IMPRESSION: Slight improvement in bibasilar moderately severe pneumonia. Slight pleural effusions, without evidence of empyema formation. The left thyroid lobe is diminutive, the right thyroid lobe is essentially absent. Please correlate clinically for whether prior thyroidectomy on the right has been performed. Dictated by: Darius Griffin M.D. on 09/04/2016 at 18:16 Approved by: Darius Griffin M.D. on 09/04/2016 at 18:16 Brief History This is a 66 year old woman with past medical history significant for hypertension, iatrogenic hypothyroidism, and seasonal allergies with inhaler use PRN who presented to the ED via EMS from urgent care due to shortness of breath and productive cough for the last 3 weeks. The patient notes that this has been worse over the last 4 days with increasing fatigue, loss of appetite and pleuritic chest pain. The patient was seen by her PCP on and was told that she had no lung pathology and was sent home. The patient then followed up in urgent care today and was noted to be hypoxemic with O2 sat of 80 % on room air wit heart rate of 135. The patient has been in otherwise good health until this episode. She denies any exertional dyspnea or orthopnea. The patient is now short of breath after a few steps. She notes a productive cough with clear to white sputum. She also notes fevers, diaphoresis, chills and feeling of her heart racing. The patient denies any myalgias or arthralgias. She notes that 2 weeks ago she was visit her grandson who was recovering from a viral illness. The patient has been on a cross country flight two weeks ago. She denies any hemoptysis or unilateral leg swelling. Patient has had her influenza vaccine. She has had poor PO intake over the last few days due to fatigue. She denies any cardiac history. In the ED her vitals were: T 37.2 HR 120 RR 20 BP 125/72 O2 Sat 90% on 2 L NC. CXR showed bibasilar pneumonia. Influenza swab was negative. She was given 1 L NS, ceftriaxone and azithromycin as well as one dose of prednisone 60 mg. patient was then admitted to the hospital service for further evaluation and treatment. Hospital Course This is a 66 year old woman with past medical history significant for hypertension, iatrogenic hypothyroidism, and seasonal allergies with inhaler use PRN who presented to the ED via EMS from urgent care due to shortness of breath and productive cough for the last 3 weeks. acute, active # Severe sepsis, present on admission, SIRS+HR 120 RR 22 WBC 16.6 with O2 sat 80 % on RA, source: pneumonia and Escherichia coli urinary tract infection with babsilar opacities on CXR, UTI secondary to.Escherichia coli, strep Ag/viral PCR neg, -Patient is clinically improving with antibiotics, will continue Ceftriaxone and Azithromycin. -However, her white blood cell has improved again today. I suspect this is due to the white blood cell count lagging behind the patient's clinical response and it appears to have peaked on 09/04/2015. Also, elevation of white blood cell count could be due to steroid use. -The prednisone was stopped 09/01/2016 -O2 supplement as needed, target>95%, should be weaned off with clinical improvement. However, patient still remains on 4 L per nasal cannula. She is on no oxygen at home. -Repeat chest x-ray shows bibasilar infiltrates unchanged since admission. However, patient is clinically improved. Chest x-ray also may be lagging behind medical improvement. # Urinary tract infection with Escherichia coli present at the time of admission -Continue Rocephin -Continue IV fluids # Decreased hearing -Could be due to acute viral illness after her trip to [place] to visit her grandchildren who are all sick with a viral illness. Her symptoms are improved after taking Zyrtec last evening. -Could be do to a side effect from the azithromycin. -We will continue Zyrtec. # Elevated white blood cell count -I have consulted Dr. Sheehan of infectious disease and he was so kind to see the patient in consultation. His recommendations are as follows: "1. I would continue with azithromycin and ceftriaxone perhaps through today, but I think the patient is really close to a point where she could be discharged. Note that she has now received basically a week's worth of both these medications, so I think stopping the azithromycin and ceftriaxone at any point here would be reasonable. 2. Once the patient is discharged, she should follow up with her primary care doctor and, among other things, have a repeat chest x-ray, perhaps in a week or so, to make sure it is starting to improve. I suspect the worsening in her chest x-ray is just because of the fact that chest x-rays often lag behind clinical improvement. Will need to make certain that is the case. 3. Her outpatient physician will need to follow her ESR as if it remains very high and if it continues greater than 100, additional diagnostic studies will likely be needed." chronic, stable # Hypertension, present on admission, continue lisinopril # Hypothyroidism 2/2 partial thyroidectomy, present on admission, continue home levothyroxine. Check TSH. Continue general diet Disposition: Patient continues to improve and will discharge home on Omnicef 300 mg by mouth twice a day for 6 more days. Exam Vital Signs (Last) Date Time Temp Pulse Resp B/P Pulse Ox O2 Delivery O2 Flow Rate FiO2 09/08/16 12:39 36.3 97 19 103/68 95 Room Air 09/06/16 13:57 3.00 Exam General: Patient is lying supine in bed and is in no apparent distress. She is awake and alert and responsive. Skin: Rash on back has improved resolved. HEENT: Head is atraumatic normocephalic. Eyes: Pupils are equally round and reactive to light and accommodation. Extraocular muscles are intact. Sclera are white anicteric. Subconjunctival mucosa is pink. Ears and nose are unremarkable. Oropharynx: There is no mucosal lesions, there is no thrush, there is no pharyngitis. Neck: Is supple, there are no nodes, or masses or tenderness. Chest: There are a few bibasilar crackles still present, right greater than left , however improved. There is minimal wheezing. There are no rhonchi or rubs. There is an area of tenderness the left flank just under the left 12th rib in the posterior axillary line area Heart: Rate, rhythm is regular. There is no new murmur, rub or gallop. Abdomen: Good bowel sounds are present. Abdomen is soft, nontender, no organomegaly or masses were appreciated. Extremities: Are symmetrical and well perfused. There is no edema, there is no cellulitis, no rash. Neurologic: There are no focal neurological deficits. Cranial nerves II through XII are intact except there is decreased hearing evident bilaterally. However, her hearing appears to have improved today. There are no sensory or motor deficits. Psychiatric: Patients mood is calm and shows no sign of agitation. Genital: Deferred Rectal: Deferred Test 08/31/16 10:40 08/31/16 11:35 09/04/16 06:15 09/05/16 06:45 Lactic Acid Level 1.8mmol/L (0.4-2.0) Troponin T < 0.010ug/L (0.0-0.011) Hold [place] Top Tube Received (Received) Urine Color Yellow (YELLOW) Urine Appearance Slightly cloudy Urine pH 6.0 (5.0-8.0) Urine Specific Mccloud 1.020 (1.003-1.035) Urine Protein 100mg/dL (NEG,TRACE) Urine Glucose (UA) Negativemg/dL (NEGATIVE) Urine Ketones 15mg/dL (NEGATIVE) Urine Occult Blood Moderate (NEGATIVE) Urine Nitrite Positive (NEGATIVE) Urine Bilirubin Negative (NEGATIVE) Urine Urobilinogen 4.0mg/dL (NORMAL) Urine Leukocyte Esterase Small (NEGATIVE) Urine RBC 0-2/hpf (0-2) Urine WBC 11-50/hpf (0-5) Urine Epithelial Cells Occasional/hpf (NONE-MOD) Urine Crystals None seen (NONE SEEN) Urine Bacteria Many/hpf (NONE-FEW) Urine Hyaline Casts None/lpf (NONE) Urine Granular Casts None seen (NONE SEEN) Urine Waxy Casts None seen (NONE SEEN) Urine Red Blood Cell Casts None seen (NONE SEEN) Urine White Blood Cell Casts None seen (NONE SEEN) Urine Mucus None seen (None Seen) Urine Trichomonas None seen (NONE SEEN) Urine Yeast None (NONE SEEN) Urinalysis Comment None Urine Culture Reflexed Indicated Phosphorus Level 3.3mg/dL (2.5-4.9) Thyroid Stimulating Hormone (TSH) 2.300uIU/mL (0.450-4.500) Erythrocyte Sedimentation Rate > 140mm/hr (0-40) C-Reactive Protein 24.1mg/dL (0.0-0.5) Procalcitonin 0.22ng/mL (See Comment) Test 09/06/16 05:50 09/06/16 16:05 09/07/16 05:53 09/08/16 05:40 Pro-B-Type Natriuretic Peptide 108.2pg/mL (0-301) Urine Legionella pneumophilia Ag Negative (Negative) Magnesium Level 2.2mg/dL (1.6-2.6) White Blood Count 10.9th/mm3 (3.8-10.1) Red Blood Count 3.47mil/mm3 (3.90-5.20) Hemoglobin 10.3g/dL (12.0-15.6) Hematocrit 31.3% (35.0-46.0) Mean Corpuscular Volume 90.2fL (81-100) Mean Corpuscular Hemoglobin 29.7pg (27.0-35.0) Mean Corpuscular Hemoglobin Concent 32.9% (32.0-37.0) Red Cell Distribution Width 13.0% (12.3-15.4) Platelet Count 608bil/L (150-400) Neutrophils (%) (Auto) 66% (40-74) Lymphocytes (%) (Auto) 18% (14-46) Monocytes (%) (Auto) 8% (4-12) Eosinophils (%) (Auto) 0% (0-5) Basophils (%) (Auto) 2% (0-3) Band Neutrophils % 3% (1-5) Metamyelocytes % 1% (0-0) Myelocytes % 2% (0-0) Sodium Level 131mEq/L (134-144) Potassium Level 4.6mEq/L (3.5-5.2) Chloride Level 94mEq/L (97-108) Carbon Dioxide Level 24mmol/L (18-29) Blood Urea Nitrogen 5mg/dL (8-27) Creatinine 0.51mg/dL (0.57-1.00) Estimat Glomerular Filtration Rate 172mL/min (>59) Glucose Level 113mg/dL (60-99) Calcium Level 8.1mg/dL (8.5-10.1) Total Bilirubin 0.3mg/dL (0.0-1.2) Aspartate Amino Transf (AST/SGOT) 45U/L (0-50) Alanine Aminotransferase (ALT/SGPT) 41U/L (0-32) Alkaline Phosphatase 105U/L (25-165) Total Protein 6.3g/dL (6.4-8.4) Albumin 2.6g/dL (3.4-5.0) Microbiology Results Strep pneumo Ag negative Name: DERIK PORTILLO Age/Sex: 66/F Attend Dr: Ron West MD Acct: [id number] Unit: [id number] Status: [place] [facility] [place]08/31/16 Disch: Specimen: [id number] Collected: 08/31/16 Status: ALFIE Avalos#: [id number] Received: 08/31/16 Source: URINE CC Sp Desc : PP Subm Dr: Will Palumbo MD Ordered: URINE CULT Procedure Result Verified Site Microbiology REINIER CULT URINE Final 09/02/16-0803 Organism 1 ESCHERICHIA COLI U COLONY COUNT/QUANTITY >100,000 CFU/ml Cefazolin-predicts results for the oral agents, cefaclor,cefdinir, cefpodoximen, cefprozil, cefuroximne axetil, cephalexin and loracarbed when used for therapy of uncomplicated UTI's due to E. coli, K. pneumoniae, and Proteus mirabilis. Cefpodoxime, cefdinir and cefuroxime axetil may be tested individually because some isolates may be susceptible to these agents while testing resistant to cefazolin. (CLSI T604-Z90 pg 53) 1. ESCHERICHIA COLI M.I.C Interp --------- ------ * AMOXICILLIN/CLAVULATE 16 I * AMPICILLIN >=32 R * CEFAZOLIN (CEPHALOSPORIN) UTI 16 S * CEFEPIME <=1 S * CEFTRIAXONE <=1 S * CEFUROXIME SODIUM 16 I * CIPROFLOXACIN <=0.25 S * ERTAPENEM <=0.5 S * GENTAMICIN <=1 S * IMIPENEM <=1 S * LEVOFLOXACIN <=0.12 S * NITROFURANTOIN <=16 S * TETRACYCLINE <=1 S * TOBRAMYCIN <=1 S * TRIMETHOPRIM/SULFAMETHOXAZOLE <=20 S Discharge Medications Discharge Medications Ascorbic Acid (Vitamin C) 500 Mg Capsule.er 500 MG PO DAILY (Reported) Aspirin (Aspirin) 81 Mg Tablet 81 MG PO DAILY (Reported) Calcium Carbonate/Vitamin D3 (Calcium 600 + Vit D Tablet) 1 Each Tablet 1 EACH PO DAILY (Reported) Cefdinir (Cefdinir) 300 Mg Capsule 300 MG PO BID Prescribed by: SRINIVAS MARQUES MD Cholecalciferol (Vitamin D3) (Vitamin D) 1,000 Unit Capsule 1,000 UNIT PO DAILY (Reported) Levothyroxine (Synthroid) 75 Mcg Tablet 75 MCG PO DAILY (Reported) Lisinopril (Lisinopril) 5 Mg Tablet 5 MG PO DAILY (Reported) Multivits-Min/FA/Lycopene/Lut (Centrum Silver Tablet) 1 Each Tablet 1 EACH PO DAILY (Reported) Commercial Point-3 Fatty Acids (Fish Oil) 500 Mg Capsule 500 MG PO DAILY (Reported) Vit B Comp/C/FA/Iron/Vit E (Vitamin B Complex Tablet) 1 Each Tablet 1 EACH PO DAILY (Reported) As needed ([Guaifenesin/D-Methorphan Hb]) 10 ML SYRUP 10 ML PO Q6H PRN PRN For Cough Prescribed by: SRINIVAS E ROSARIO, MD Loratadine (Claritin) 10 Mg Capsule 10 MG PO DAILY PRN PRN allergies (Reported) Sennosides (Senna) 8.6 Mg Tablet 17.2 MG PO BID PRN PRN For Constipation Prescribed by: SRINIVAS MARQUES MD Followup Plan Disposition: Patient is being discharged home in the care of her sister today. Discharge Diet: Heart Healthy Discharge Activity: No restrictions (May return to usual activities gradually as tolerated) Follow-up Provider: Charlotte Llamas MD Follow-up with PCP in: 1 week Provider: Mark Anthony Sheehan MD Follow-up in: 4 weeks (For Infectious Disease Follow Up) Time spent Time spent on discharging this patient was greater than 35 minutes, over half of which was involved in counseling and coordination of care. Satya Marques MD Sep 09, 2016 01:08
== END 2016-09-08 17:37 | disposition home or self-care (01) | DRG 871 ==
LOC: SED 10:18 → MPC 14:03
PROVIDERS: ADMIT Internal Medicine; ATTEND Internal Medicine
DX: A41.9 Sepsis, unspecified organism (principal); J15.9 Unspecified bacterial pneumonia; J96.01 Acute respiratory failure with hypoxia; N39.0 Urinary tract infection, site not specified; E87.1 Hypo-osmolality and hyponatremia; R65.20 Severe sepsis without septic shock; I10 Essential (primary) hypertension; B96.20 Unspecified Escherichia coli [E. coli] as the cause of diseases classified elsewhere; K21.9 Gastro-esophageal reflux disease without esophagitis; E89.0 Postprocedural hypothyroidism; E87.6 Hypokalemia

== ENCOUNTER 2017-01-22 12:00 | Day surgery (SDC) | payer OTHER ==
[~2017-01-22] VITALS: Ht 160 cm; Wt 51.7 kg
[~2017-01-22 12:00] MED LIST changes: +0.9% Sodium Chloride 1,000 ML IV SCH; -ALBU8.5H4 IH; -ASPI-628 PO; +ASPI-973 PO; +CALC-243 PO; -CALC1TAB99 PO; -CYAN1TAB42 PO; -LISI10TA2 PO; +LORA10CA PO; -LORA10TA7 PO; +MULT-1073 PO; +Sodium Chloride LOK Flush 10 mL Syringe IV PRN; +VIT1TABL83 PO; +fentaNYL-PF 50 mCg/mL 2 mL Inj IVPUSH PRN
[2017-01-22] MEDS ORDERED: fentaNYL-PF 50 mCg/mL 2 mL Inj IVPUSH ONE (12:01)
[2017-01-22 12:47] VITALS: BP 140/92; PULSE 80; RESP 12; O2SAT 98
[2017-01-22 13:15] VITALS: BP 102/61; PULSE 76; RESP 16; O2SAT 93
[2017-01-22 13:35] VITALS: BP 111/65; PULSE 70; RESP 16; O2SAT 98
[2017-01-22 13:38] VITALS: BP 109/63; PULSE 70; RESP 14; O2SAT 98
--- NOTE | 2017-01-23 07:20 | ENDO ---
[address] [address] ENDOSCOPY PROCEDURE PATIENT: DERIK PORTILLO : 1950 MR#: [id number] ADMIT: 01/22/2017 JOB ID: [id number] DATE OF SERVICE: 01/22/2017 TYPE OF OPERATION: Colonoscopy with biopsy. PREOPERATIVE DIAGNOSIS: Change in bowel habits. POSTOPERATIVE DIAGNOSIS(ES): 1. A 2 mm cecal polyp, removed by cold biopsy forceps. 2. Tortuous sigmoid colon from prior surgery from adhesions. ANESTHESIA: 1. Fentanyl 100 mcg. 2. Versed 4 mg IV administered. COMPLICATION: None. BLOOD LOSS: Minimal. DESCRIPTION OF PROCEDURE: After risks and benefits explained to the patient, informed consent was obtained. After anesthesia administered, colonoscope was inserted from the rectum to the terminal ileum. Mucosa examined. Prep of the patient was excellent. After procedure was done, the scope withdrawn and procedure terminated. FINDINGS: Upon inspection of the anus, no masses, hemorrhoids, ulcers or fissures that were seen. Throughout the entire examination, there was a 2 mm cecal polyp, removed by cold biopsy forceps. The sigmoid colon was quite tortuous due to adhesions from prior surgery. Random biopsies taken in the terminal ileum and random colon. Retroflexion was normal. IMPRESSION: 1. A 2 mm cecal polyp, removed by cold biopsy forceps. 2. Severe tortuous sigmoid colon from prior surgery due to adhesions. RECOMMENDATIONS: 1. Await pathology results. If tubular adenoma, then repeat colonoscopy in five years. 2. Follow up in the GI clinic as outpatient.
--- NOTE | 2017-01-25 17:59 | PATH ---
SURGICAL PATHOLOGY Attending Physician:Danial Mcdonald MD CASE STATUS: Signed Out PATIENT NAME: DERIK PORTILLO PID: [id number] : 1950 DATE COLLECTED:01/22/2017 19:57 SPECIMEN: 1: Ileum, Biopsy 2: Colon, Biopsy 3: Colon, Biopsy CLINICAL HISTORY: CHANGE IN BOWEL HABITS 1). TERMINAL ILEUM BIOPSY 2). RANDOM COLON BIOPSY 3). CECAL POLYP X1 FINAL DIAGNOSIS: 1. Terminal Ileum, Biopsy: Superficial portion of small intestinal mucosa with no diagnostic abnormality. Negative for dysplasia and malignancy. 2. Random Colon Biopsies: Superficial portions of colorectal mucosa with occasional, scattered lymphoid aggregates and mild, focal hyperplastic mucosal features. Negative for active inflammation, granulomas, dysplasia, and malignancy. 3. Cecum, Polyp, Biopsy: Tubular adenoma; negative for high-grade dysplasia. ICD10: K63.5 GROSS DESCRIPTION: The specimen is received in three formalin filled containers labeled with the patient's name. 1). The specimen is sublabeled " TI " and consists of a 0.4 x 0.2 x 0.2 CM portion of tissue which is entirely submitted in cassette 1A. 2). The specimen is sublabeled "random colon" and consists of 5 portions of tissue which aggregate to 0.5 x 0.5 x 0.2 CM. The specimen is entirely submitted in cassette 2A. 3). The specimen is sublabeled "cecal polyp" and consists of a 0.3 x 0.3 x 0.2 CM piece of tissue which is entirely submitted in cassettes 3A. 01/22/2017 [facility] ICD-9 CODES: CPT CODES: 1: 51235 2: 57036 3: 83657 Electronically Signed Out Tiffani Duran MD [facility], [place] [address] Technical component performed at [facility], [facility] [address], [place], [address]
== END 2017-01-22 23:59 | disposition home or self-care (01) ==
LOC: END 12:00
PROVIDERS: ATTEND Internal Medicine Gastroenterology
DX: R19.4 Change in bowel habit (principal); D12.0 Benign neoplasm of cecum; K63.89 Other specified diseases of intestine; I10 Essential (primary) hypertension
CPT/HCPCS: 45380; G0500; J2250; J3010; J7030

== ENCOUNTER 2017-04-06 10:47 | Emergency (ER) | payer OTHER ==
[~2017-04-06] VITALS: Ht 157.5 cm; Wt 52.2 kg
[~2017-04-06 10:47] MED LIST changes: -0.9% Sodium Chloride 1,000 ML IV SCH; -Sodium Chloride LOK Flush 10 mL Syringe IV PRN; -fentaNYL-PF 50 mCg/mL 2 mL Inj IVPUSH PRN
[2017-04-06 10:59] VITALS: BP 157/81; PULSE 80; RESP 16; O2SAT 98
[2017-04-06 11:06] VITALS: BP 157/81; PULSE 80; RESP 16; O2SAT 98
--- NOTE | 2017-04-06 11:14 | ED.REPORT ---
HPI-Chest Pain 40 and Over Date of Service Apr 06, 2017 ED Provider: Dr. Skaggs Pt is a 67 year old female with a hx of HTN, osteoporosis, thrombocytosis, hypothyroidism presenting to the ED from complaining of a tight left sided flank pain onset last week. Associated symptoms include lightheadedness, left sided headache (now resolved after Tylenol), intermittent heart flutter, chest discomfort (x4 days), chest heaviness, high blood pressure (last couple weeks), decreased urination, and a decreased appetite. Denies abd pain, SOB, nausea, vomiting, diarrhea, dysuria, hematuria, urinary frequency, speech changes, vision changes, or focal weakness. She states that she was on 0.5 mg Lisinopril but her PCP took her off a few months ago. Nursing Notes Stated Complaint: CHEST PAIN Chief Complaint: General Complaint Nursing Notes Reviewed: Yes Allergies: Coded Allergies: Sulfa (Sulfonamide Antibiotics) (Verified Allergy, Intermediate, Rash, DEHYDRATION, 01/21/17) atenolol (Verified Allergy, Mild, 01/21/17) FATIGUE tetracycline (Verified Allergy, Unknown, INCREASED INFECTION, 01/21/17) Scheduled Ascorbic Acid (Vitamin C) 500 Mg Capsule.er 500 MG PO DAILY Aspirin (Aspirin) 81 Mg Tablet 81 MG PO DAILY Calcium Carbonate/Vitamin D3 (Calcium 600 + Vit D Tablet) 1 Each Tablet 1 EACH PO DAILY Cholecalciferol (Vitamin D3) (Vitamin D) 1,000 Unit Capsule 1,000 UNIT PO DAILY Levothyroxine (Synthroid) 75 Mcg Tablet 75 MCG PO DAILY Lisinopril (Lisinopril) 10 Mg Tablet 10 MG PO DAILY Multivits-Min/FA/Lycopene/Lut (Centrum Silver Tablet) 1 Each Tablet 1 EACH PO DAILY [place]-3 Fatty Acids (Fish Oil) 500 Mg Capsule 500 MG PO DAILY Vit B Comp/C/FA/Iron/Vit E (Vitamin B Complex Tablet) 1 Each Tablet 1 EACH PO DAILY Scheduled PRN Loratadine (Claritin) 10 Mg Capsule 10 MG PO DAILY PRN PRN allergies General Time Seen by MD: 11:14 Chief Complaint Other (Flank pain) Hx Obtained From: Patient Arrived By: Walk-in Sudden in Onset?: No Onset Occurred: 1 week ago Symptom Duration: Since onset Quality: Painful Severity: Current: Moderate Severity: Maximum: Severe Recent Healthcare: No recent hospitalization, Recent doctor visit Similar Sx Previous: No Past Medical History Past Medical History Hypothyroid Thrombocytosis Hypertension GERD Depression Allergies- uses an inhaler PRN Osteoporosis Past Surgical History Partial thyroidectomy Reports: Hysterectomy Smoking History Never Smoker Social History Alcohol Use: 1-3 per day Ambulatory Status Independent Review of Systems Review of Systems Note: Reports: Decreased appetite, high blood pressure Respiratory: Denies: Shortness of breath Cardiovascular: Reports: Chest pain, Palpitations GI: Denies: Abdominal pain, Diarrhea, Nausea, Vomiting Neurologic: Reports: Headache, Lightheaded, Denies: Focal weakness, Slurred speech, Unable to speak, Vision change Complete sys rev & neg: except as marked. Female: Reports: Flank pain, Urination decreased, Denies: Dysuria, Hematuria Male: Denies Urinary frequency Physical Exam Initial Vital Signs Vital Signs (First) Date Time Temp Pulse Resp B/P Pulse Ox O2 Delivery O2 Flow Rate FiO2 04/06/17 10:59 36.4 80 16 157/81 98 Room Air Initial VS: Reviewed Head / Eyes: Atraumatic, Normocephalic, PERRL ENT: Mucous membranes moist, Conjunctiva normal, No scleral icterus Extremities: Vascular intact, Neuro intact, No swelling, No tenderness Skin: Warm, Dry, No cyanosis Neurologic: Alert, Oriented, Nonfocal Psychiatric: Mood/affect normal, Behavior normal, Normal thought content General/Constitutional: Awake, Alert, No acute distress, Well appearing Respiratory / Chest: Atraumatic, Breath sounds NL, Breath sounds = bilat, No respiratory distress Cardiovascular: Heart rate NL, Regular rhythm, Heart sounds NL Abdomen: Atraumatic, Soft, Non-tender Back: Atraumatic Tenderness at left flank/lower ribs Interpretation & Diagnostics Lab Results Interpretation Result Diagram: 04/06/17 1132 04/06/17 1132 Test 04/06/17 11:32 04/06/17 11:50 White Blood Count 5.7th/mm3 (3.8-10.1) Red Blood Count 4.43mil/mm3 (3.90-5.20) Hemoglobin 13.6g/dL (12.0-15.6) Hematocrit 39.0% (35.0-46.0) Mean Corpuscular Volume 88.0fL (81-100) Mean Corpuscular Hemoglobin 30.7pg (27.0-35.0) Mean Corpuscular Hemoglobin Concent 34.9% (32.0-37.0) Red Cell Distribution Width 12.5% (12.3-15.4) Platelet Count 207bil/L (150-400) Neutrophils (%) (Auto) 58.5% (40-74) Lymphocytes (%) (Auto) 31.8% (14-46) Monocytes (%) (Auto) 6.0% (4-12) Eosinophils (%) (Auto) 2.8% (0-5) Basophils (%) (Auto) 0.7% (0-3) Sodium Level 137mEq/L (134-144) Potassium Level 4.0mEq/L (3.5-5.2) Chloride Level 100mEq/L (97-108) Carbon Dioxide Level 24mmol/L (18-29) Blood Urea Nitrogen 25mg/dL (8-27) Creatinine 0.61mg/dL (0.57-1.00) Estimat Glomerular Filtration Rate 140mL/min (>59) Glucose Level 98mg/dL (60-99) Calcium Level 9.1mg/dL (8.5-10.1) Magnesium Level 2.2mg/dL (1.6-2.6) Total Bilirubin 0.3mg/dL (0.0-1.2) Aspartate Amino Transf (AST/SGOT) 18U/L (0-50) Alanine Aminotransferase (ALT/SGPT) 13U/L (0-32) Alkaline Phosphatase 70U/L (25-165) Troponin T 0.010ug/L (0.0-0.011) Total Protein 7.4g/dL (6.4-8.4) Albumin 4.2g/dL (3.4-5.0) Hold [place] Top Tube Received (Received) D-Dimer < 0.50mg/L FEU (<0.50) ECG Interpretation Time: 11:20 Interpreted by: ED physician Normal ECG Interpretation: Normal rate (75), Normal sinus rhythm X-Ray Chest Interpretation Chest Xray Interpretation: IMPRESSION: Stable chest. No acute cardiopulmonary process is evident. Dictated by: Ciro Durant M.D. on 04/06/2017 at 10:43 View: Portable, 1 view Interpretation / Wet Read by: Interpret - Radiologist CT Head Interpretation IMPRESSION: No acute intracranial disease process. Dictated by: Lucia Betancourt MD, PhD on 04/06/2017 at 14:54 Approved by: Lucia Betancourt MD, PhD on 04/06/2017 at 14:56 CT Abd / Pelvis Interpretation IMPRESSION: 1. No nephro or ureterolithiasis. 2. Moderate colonic stool without obstruction. 3. Diverticulosis. 4. Unchanged 5 mm hepatic low attenuation focus compared to 11/27/13. This likely represents a small cyst. Dictated by: Deirdre Flores M.D. on 04/06/2017 at 14:57 Approved by: Deirdre Flores M.D. on 04/06/2017 at 15:01 Study type: Abdominal CT IV contrast Interpretation / Wet Read by: Interpret - Radiologist Re-Eval/Medical Decision Med Decision/Clinical Course Overall no obvious life-threatening pathology. Patient is feeling better. Patient is agreeable with discharge. Will resume lisinopril. Return and follow-up precautions given. Time of Eval: 15:18 Patient Status: Condition improved Re-Evaluation/Progress Note: Discussed CT and radiology results. Pt feels better and ready to go. Discussed plan for discharge. All pt questions addressed. Counseled Regarding: Diagnosis, Lab results, Need for follow-up, When/why to return to ED Discharge & Departure Primary Impression: Hypertension Hypertension type: unspecified secondary hypertension Qualified Code: I15.9 - Secondary hypertension, unspecified Additional Impressions: Flank pain Headache Headache type: unspecified Headache chronicity pattern: unspecified pattern Intractability: intractable Qualified Code: R51 - Headache Disposition: Home Discharge Condition All VS Reviewed: Yes Condition: Improved Additional Instructions: Your workup is reassuring. Resume lisinopril at 10 mg a day. Call your doctor in morning for follow-up appointment and reevaluation of your blood pressure and other symptoms. Return to the ER if you develop severe chest pain, trouble breathing, a severe headache or other concerns. Referrals: Dixie Vergara DO (PCP) Ivonneibelsa Attestation Portions of this note were transcribed by Therese Machado. I, Dr. Skaggs personally performed the history, physical exam and medical decision-making; I reviewed and confirmed the accuracy of the information in the transcribed note. Signed by: Odessa Rios, 04/06/2017. copies to: Dixie Vergara Timothy S DO Apr 06, 2017 11:14 THERESE MACHADO Apr 06, 2017 11:32
[2017-04-06 11:35] LABS: BASOPHILS % (AUTO) 0.7 % (0-3); EOSINOPHILS % (AUTO) 2.8 % (0-5); Mean Corpuscular Hemoglobin 30.7 pg (27.0-35.0); NEUTROPHILS % (AUTO) 58.5 % (40-74); Platelet Count 207 bil/L (150-400)
--- NOTE | 2017-04-06 11:45 | DRSVH ---
PROCEDURE: X-RAY CHEST ONE VIEW, PORTABLE ([id number]) INDICATIONS: CHEST PAIN TECHNIQUE: One view of the chest was acquired. COMPARISON: [facility], CR, XR CHEST 2VW, 11/23/2016, 9:01. FINDINGS: Surgical changes and devices: None. Lungs and pleura: No pleural effusions or pneumothorax. Lungs are clear. Mediastinum: Mediastinal contours appear normal. Heart size is normal. Bones and chest wall: No suspicious bony lesions. Degenerative changes of the shoulders and imaged spine are present. Overlying soft tissues appear unremarkable. IMPRESSION: Stable chest. No acute cardiopulmonary process is evident. Dictated by: Ciro Durant M.D. on 04/06/2017 at 10:43 Approved by: Ciro Durant M.D. on 04/06/2017 at 10:43
[2017-04-06 12:35] LABS: TROPONIN T 0.01 ug/L (0.0-0.011)
[2017-04-06 12:39] VITALS: BP 129/79; PULSE 68; RESP 16; O2SAT 98
[2017-04-06 12:47] LABS: Magnesium 2.2 mg/dL (1.6-2.6)
[2017-04-06] MEDS ORDERED: Iohexol 300 mg/mL 30 mL Inj PO ONE (12:50)
--- NOTE | 2017-04-06 14:57 | DRSVH ---
PROCEDURE: CT BRAIN WITHOUT CONTRAST ([id number]) INDICATIONS: headache TECHNIQUE: Noncontrast 4.5 mm thick angled axial sections acquired from the foramen magnum to the vertex, with c oronal reformats. COMPARISON: None. FINDINGS: Image quality: Excellent. CSF spaces: Basal cisterns are patent. No extra-axial fluid collections. The ventricles are symmet brigitte in size and shape. Brain: No intracranial bleeds or masses. There is cerebral volume loss for age, with resultant vent ricular and sulcal prominence. There are periventricular and deep white matter chronic small vessel ischemic changes. There is intracranial internal carotid artery atherosclerosis. Skull and face: Calvarium and visualized facial bones appear intact, without suspicious lesions. Sinuses: Visualized sinuses and mastoids are clear. IMPRESSION: No acute intracranial disease process. Dictated by: Lucia Betancourt MD, PhD on 04/06/2017 at 14:54 Approved by: Lucia Betancourt MD, PhD on 04/06/2017 at 14:56
--- NOTE | 2017-04-06 15:02 | DRSVH ---
PROCEDURE: CT ABDOMEN AND PELVIS WITH CONTRAST ([id number]) INDICATIONS: L flank pain without hematuria TECHNIQUE: After the administration of intravenous contrast, 5 mm thick sections acquired from the diaphragm to the symphysis. 5 mm coronal and sagittal reformats were acquired. For radiation dose reduction, the following was used: automated exposure control, adjustment of mA and/or kV according to patient noel hunter. COMPARISON: [facility], CT, ABD/PELVIS W/CON (PNL), 11/27/2013, 16:25. FINDINGS: Image quality: Excellent. ABDOMEN: Lung bases: Lung bases are clear. Heart size is normal. Solid organs: Liver and spleen are normal in size. Unchanged 5 mm right hepatic focus of low attenua tion. Gallbladder is unremarkable. Biliary system is non dilated. Pancreas enhances normally. No a drenal nodules. Kidneys demonstrate normal size and enhancement, without hydronephrosis. Multiple l ow attenuation renal foci are present, most suggestive of cysts. Peritoneum and bowel: Bowel loops demonstrate normal wall thickness and caliber. No free fluid or a ir. Minimal scattered diverticula without inflammatory change. Moderate colonic stool without obstru ction. Nodes and vessels: No retroperitoneal or mesenteric adenopathy by size criteria. Aorta and inferior vena cava are normal in size. Miscellaneous: No ventral hernias. PELVIS: Genitourinary: Bladder wall thickness is normal. Miscellaneous: No inguinal hernias or adenopathy. Bones: No suspicious bony lesions. No vertebral body compression fractures. Thoracolumbar degenera tive changes are present. IMPRESSION: 1. No nephro or ureterolithiasis. 2. Moderate colonic stool without obstruction. 3. Diverticulosis. 4. Unchanged 5 mm hepatic low attenuation focus compared to 11/27/13. This likely represents a small cy st. Dictated by: Deirdre Flores M.D. on 04/06/2017 at 14:57 Approved by: Deirdre Flores M.D. on 04/06/2017 at 15:01
[2017-04-06] MEDS ORDERED: LISI10TA PO (15:16)
[2017-04-06 15:27] VITALS: BP 130/93; PULSE 72; RESP 16; O2SAT 99
== END 2017-04-06 15:28 | disposition home or self-care (01) ==
LOC: SED 10:47
DX: I15.9 Secondary hypertension, unspecified (principal); R51 Headache; R10.9 Unspecified abdominal pain; E03.9 Hypothyroidism, unspecified; K21.9 Gastro-esophageal reflux disease without esophagitis; F32.9 Major depressive disorder, single episode, unspecified; Z88.2 Allergy status to sulfonamides; Z88.8 Allergy status to other drugs, medicaments and biological substances; Z79.82 Long term (current) use of aspirin; Z88.5 Allergy status to narcotic agent
CPT/HCPCS: 36415; 70450; 71010; 74177; 80053; 83735; 84484; 85025; 85378; 93005; 99285; Q9967